=== PATIENT | male | born 1960 | race Caucasian/White ===

== ENCOUNTER 2017-10-05 23:59 | Emergency (ER) | payer MEDICAID ==
[~2017-10-05] VITALS: Ht 177.8 cm; Wt 102.1 kg
[2017-10-06 01:18] VITALS: BP 168/87
[2017-10-06] MEDS ORDERED: ACETAMINOPHEN/CODEINE#3 (300/30mg) TAB PO ONE (07:00)
== END 2017-10-06 07:26 | disposition home or self-care (01) ==
LOC: ER 10-06
DX: S43.005A Unspecified dislocation of left shoulder joint, initial encounter (principal); X58.XXXA Exposure to other specified factors, initial encounter; Y93.89 Activity, other specified; Y99.8 Other external cause status; Y92.89 Other specified places as the place of occurrence of the external cause
CPT/HCPCS: 23650; 73020; 73030

== ENCOUNTER 2017-12-29 02:04 | Emergency (ER) | payer MEDICAID, OTHER ==
[~2017-12-29] VITALS: Ht 177.8 cm; Wt 104.3 kg
[2017-12-29 02:10] VITALS: BP 135/105
[2017-12-29 02:37] LABS: Basophils # (auto) 0.1 uL; Basophils % (auto) 0.8 % (0.0-2.0); Eosinophils # (auto) 0.1 uL; Eosinophils % (auto) 0.4 % (0.0-7.0); Hematocrit 48.3 % (41.0-53.0); Hemoglobin 16.2 g/dL (13.5-17.5); Lymphocytes # (auto) 2.1 uL; Lymphocytes % (auto) 17.7 % (10.0-50.0); Mean Corpuscular Hemoglobin 29.1 pg (28.0-32.0); Mean Corpuscular Hgb Conc. 33.6 g/dL (32.0-36.0); Mean Corpuscular Volume 86.6 fL (80.0-100.0); Monocytes # (auto) 0.9 uL; Monocytes % (auto) 7.4 % (0.0-12.0); Neutrophils # (auto) 8.7 uL; Neutrophils % (auto) 73.7 % (37.0-80.0); Platelet Count (auto) 258 10^3/uL (140-450); Red Blood Cells 5.57 10^6/uL (4.5-5.90); Red Cell Distribution Width 14.2 % (11.8-14.3); White Blood Cell 11.7 10^3/uL (4.4-10.8)
[2017-12-29 02:50] LABS: Alanine Aminotransferase 68 U/L (16-61); Albumin 4.2 g/dL (3.4-5.0); Anion Gap 8 (5-15); Aspartate Aminotransferase 40 U/L (15-37); BUN/Creatinine Ratio 21.4; Blood Urea Nitrogen 21 mg/dL (7-18); Calcium 8.7 mg/dL (8.5-10.1); Carbon Dioxide 27 mmol/L (21-32); Chloride 105 mmol/L (98-107); GFR African American 101 mL/min; GFR Non-African American 84 mL/min; Glucose 87 mg/dL (74-106); Potassium 3.9 mmol/L (3.5-5.1); Sodium 140 mmol/L (136-145)
[2017-12-29 02:52] LABS: INR 1.15 (0.9-1.15); Prothrombin Time 12.6 sec (9.37-12.3)
[2017-12-29 02:55] LABS: Alkaline Phosphatase 107 U/L (45-117); Bilirubin, Total 1.5 mg/dL (0.2-1.0); Total Protein 8.5 g/dL (6.4-8.2)
[2017-12-29 03:33] LABS: Urine WBC None Seen /hpf (0 - 3)
[2017-12-29 03:50] LABS: Urine Bacteria NONE SEEN /hpf (None Seen); Urine Blood Negative /uL (Negative); Urine Mucus FEW (None Seen); Urine Specific Gravity 1.028 (1.001-1.035)
== END 2017-12-29 10:42 | disposition left against medical advice (07) ==
LOC: ER 02:06
DX: R06.02 Shortness of breath (principal); R42 Dizziness and giddiness; Z53.21 Procedure and treatment not carried out due to patient leaving prior to being seen by health care provider
CPT/HCPCS: 36415; 70450; 71046; 73130; 73600; 80053; 81001; 83880; 84484; 85025; 85610; 85730; 93005

== ENCOUNTER 2018-07-24 14:09 | Emergency (ER) | payer MEDICAID ==
[~2018-07-24] VITALS: Ht 177.8 cm; Wt 99.8 kg
[2018-07-24 14:41] VITALS: BP 166/113
[2018-07-24] MEDS ORDERED: SODIUM CHLORIDE 0.9% 1,000 ML IV ONE (14:50)
[2018-07-24] MEDS ORDERED: KETOROLAC TROMETH 30 MG/ML 1ML VIAL IV ONE (15:00)
[2018-07-24] MEDS ORDERED: cloNIDine HCL 0.1 MG TAB PO ONE (15:00)
[2018-07-24 15:39] LABS: Basophils # (auto) 0.1 uL; Basophils % (auto) 0.8 % (0.0-2.0); Eosinophils # (auto) 0.1 uL; Eosinophils % (auto) 1.2 % (0.0-7.0); Hematocrit 45.4 % (41.0-53.0); Hemoglobin 15.5 g/dL (13.5-17.5); Lymphocytes # (auto) 1.6 uL; Lymphocytes % (auto) 17.2 % (10.0-50.0); Mean Corpuscular Hemoglobin 29.7 pg (28.0-32.0); Mean Corpuscular Volume 87.4 fL (80.0-100.0); Monocytes # (auto) 0.9 uL; Monocytes % (auto) 9.1 % (0.0-12.0); Neutrophils # (auto) 6.9 uL; Neutrophils % (auto) 71.7 % (37.0-80.0); Platelet Count (auto) 257 10^3/uL (140-450); Red Cell Distribution Width 14.1 % (11.8-14.3); White Blood Cell 9.6 10^3/uL (4.4-10.8)
[2018-07-24 16:03] LABS: Albumin 4.1 g/dL (3.4-5.0); Anion Gap 4 (5-15); Blood Urea Nitrogen 22 mg/dL (7-18); Calcium 8.6 mg/dL (8.5-10.1); Carbon Dioxide 27 mmol/L (21-32); Chloride 108 mmol/L (98-107); Glucose 103 mg/dL (74-106); Magnesium 2.5 mg/dL (1.6-2.6); Sodium 139 mmol/L (136-145)
[2018-07-24 16:10] LABS: Alanine Aminotransferase 63 U/L (16-61); Alkaline Phosphatase 100 U/L (45-117); Aspartate Aminotransferase 41 U/L (15-37); BUN/Creatinine Ratio 17.7; Bilirubin, Total 1.1 mg/dL (0.2-1.0); GFR African American 77 mL/min; GFR Non-African American 64 mL/min; Total Protein 7.7 g/dL (6.4-8.2)
== END 2018-07-24 16:31 | disposition home or self-care (01) ==
LOC: ER 14:13
DX: I10 Essential (primary) hypertension (principal); R10.12 Left upper quadrant pain
CPT/HCPCS: 36415; 74176; 80053; 83735; 84484; 85025; 93005; 96361; 96374; 99284; J1885

== ENCOUNTER 2019-04-06 23:59 | Emergency (ER) | payer MEDICAID ==
[~2019-04-06] VITALS: Ht 177.8 cm; Wt 99.8 kg
[2019-04-07 01:28] VITALS: BP 129/84
[2019-04-07] MEDS ORDERED: cefTRIAXone SOD 1,000 MG VL IM ONE (01:30)
[2019-04-07] MEDS ORDERED: LIDOCAINE 1% HCL (LOCAL ANESTH.) INJ 20ML MDV IJ ONE (01:45)
== END 2019-04-07 02:22 | disposition home or self-care (01) ==
LOC: ER 04-07 00:02
DX: S61.011A Laceration without foreign body of right thumb without damage to nail, initial encounter (principal); W20.8XXA Other cause of strike by thrown, projected or falling object, initial encounter; Y93.89 Activity, other specified; Y92.89 Other specified places as the place of occurrence of the external cause; Y99.8 Other external cause status
CPT/HCPCS: 12001; 73120; 96372; 99283; J0696; J2001

== ENCOUNTER 2019-04-17 00:52 | Emergency (ER) | payer MEDICAID ==
[~2019-04-17] VITALS: Ht 177.8 cm; Wt 103.0 kg
[2019-04-17 01:02] VITALS: BP 183/90
[2019-04-17] MEDS ORDERED: KETOROLAC TROMETH 60MG/2ML VIAL IM ONE (05:30)
== END 2019-04-17 06:01 | disposition home or self-care (01) ==
LOC: ER 00:57
DX: M54.5 Low back pain (principal); X50.1XXA Overexertion from prolonged static or awkward postures, initial encounter; Y93.89 Activity, other specified; Y92.89 Other specified places as the place of occurrence of the external cause; Y99.8 Other external cause status
CPT/HCPCS: 72131; 96372; 99284; J1885

== ENCOUNTER 2020-06-11 13:06 | Emergency (ER) | payer MEDICAID ==
[~2020-06-11] VITALS: Ht 177.8 cm; Wt 105.2 kg
[2020-06-11 13:57] LABS: Basophils # (auto) 0.1 10 ^3/uL (0-0.2); Basophils % (auto) 0.9 % (0.0-2.0); Eosinophils # (auto) 0.3 10 ^3/uL (0-0.8); Eosinophils % (auto) 4.7 % (0.0-7.0); Hematocrit 43.1 % (41.0-53.0); Hemoglobin 14.8 g/dL (13.5-17.5); Lymphocytes # (auto) 1.7 10 ^3/uL (0.4-5.4); Lymphocytes % (auto) 24.7 % (10.0-50.0); Mean Corpuscular Hemoglobin 29.3 pg (28.0-32.0); Mean Corpuscular Hgb Conc. 34.3 g/dL (32.0-36.0); Mean Corpuscular Volume 85.4 fL (80.0-100.0); Monocytes # (auto) 0.6 10 ^3/uL (0-1.3); Monocytes % (auto) 8.8 % (0.0-12.0); Neutrophils # (auto) 4.2 10 ^3/uL (1.6-8.6); Neutrophils % (auto) 60.9 % (37.0-80.0); Nucleated Red Blood Cells % 0.1 %; Platelet Count (auto) 239 10^3/uL (140-450); Red Blood Cells 5.04 10^6/uL (4.5-5.90); Red Cell Distribution Width 14.8 % (11.8-14.3); White Blood Cell 6.9 10^3/uL (4.4-10.8)
[2020-06-11 14:19] LABS: Alanine Aminotransferase 71 U/L (16-61); Albumin 3.8 g/dL (3.4-5.0); Anion Gap 5 (5-15); Aspartate Aminotransferase 45 U/L (15-37); BUN/Creatinine Ratio 15.2; Blood Urea Nitrogen 16 mg/dL (7-18); Calcium 8.2 mg/dL (8.5-10.1); Carbon Dioxide 30 mmol/L (21-32); Chloride 106 mmol/L (98-107); GFR African American 93 mL/min; GFR Non-African American 77 mL/min; Glucose 86 mg/dL (74-106); Magnesium 2.3 mg/dL (1.6-2.6); Potassium 3.7 mmol/L (3.5-5.1); Sodium 141 mmol/L (136-145)
[2020-06-11 14:26] LABS: Alkaline Phosphatase 124 U/L (45-117); Bilirubin, Total 0.9 mg/dL (0.2-1.0)
[2020-06-11] MEDS ORDERED: IOHEXOL 350 MG/ML 100ML IJ ONE (14:29)
[2020-06-11 16:44] VITALS: BP 147/76
== END 2020-06-11 16:46 | disposition home or self-care (01) ==
LOC: ER 13:06
DX: F41.9 Anxiety disorder, unspecified (principal)
CPT/HCPCS: 36415; 71260; 74177; 80053; 83735; 83880; 84484; 85025; 85379; 99285; Q9967

== ENCOUNTER 2020-10-07 13:38 | Emergency (ER) | payer MEDICAID ==
[~2020-10-07] VITALS: Ht 177.8 cm; Wt 98.9 kg
[2020-10-07 14:55] VITALS: BP 142/97
[2020-10-07] MEDS ORDERED: LIDOCAINE 1% HCL (LOCAL ANESTH.) INJ 20ML MDV IJ ONE (15:15)
== END 2020-10-07 15:44 | disposition home or self-care (01) ==
LOC: ER 13:38
DX: S61.211A Laceration without foreign body of left index finger without damage to nail, initial encounter (principal); X58.XXXA Exposure to other specified factors, initial encounter; Y93.89 Activity, other specified; Y92.89 Other specified places as the place of occurrence of the external cause; Y99.8 Other external cause status
CPT/HCPCS: 12001; 99282; J2001

== ENCOUNTER 2021-08-02 06:33 | Emergency (ER) | payer MEDICAID ==
[~2021-08-02] VITALS: Ht 177.8 cm; Wt 99.8 kg
[2021-08-02 06:33] VITALS: BP 154/103
[2021-08-02 08:48] LABS: Basophils # (auto) 0 10 ^3/uL (0-0.2); Basophils % (auto) 0.5 % (0.0-2.0); Eosinophils # (auto) 0.1 10 ^3/uL (0-0.8); Eosinophils % (auto) 1.4 % (0.0-7.0); Hemoglobin 15.5 g/dL (13.5-17.5); Lymphocytes # (auto) 1.6 10 ^3/uL (0.4-5.4); Lymphocytes % (auto) 18.2 % (10.0-50.0); Mean Corpuscular Hemoglobin 27.8 pg (28.0-32.0); Mean Corpuscular Hgb Conc. 32.2 g/dL (32.0-36.0); Mean Corpuscular Volume 86.3 fL (80.0-100.0); Monocytes # (auto) 0.6 10 ^3/uL (0-1.3); Monocytes % (auto) 7.3 % (0.0-12.0); Neutrophils # (auto) 6.2 10 ^3/uL (1.6-8.6); Neutrophils % (auto) 72.6 % (37.0-80.0); Nucleated Red Blood Cells % 0.1 %; Red Blood Cells 5.57 10^6/uL (4.5-5.90); Red Cell Distribution Width 14.4 % (11.8-14.3); White Blood Cell 8.6 10^3/uL (4.4-10.8)
[2021-08-02 10:07] LABS: Albumin 3.5 g/dL (3.4-5.0); Calcium 8.8 mg/dL (8.5-10.1)
[2021-08-02 10:12] LABS: BUN/Creatinine Ratio 23.5; Bilirubin, Total 1.1 mg/dL (0.2-1.0)
== END 2021-08-02 09:57 | disposition left against medical advice (07) ==
LOC: ER 06:33
DX: R06.02 Shortness of breath (principal); Z53.21 Procedure and treatment not carried out due to patient leaving prior to being seen by health care provider
CPT/HCPCS: 36415; 71045; 80053; 84484; 85025; 93005

== ENCOUNTER 2021-10-21 19:29 | Emergency (ER) | payer MEDICAID ==
[~2021-10-21] VITALS: Ht 177.8 cm; Wt 99.8 kg
[2021-10-21 21:37] LABS: Albumin 3.9 g/dL (3.4-5.0); BUN/Creatinine Ratio 21.3; Calcium 8.7 mg/dL (8.5-10.1); Potassium 4.6 mmol/L (3.5-5.1)
[2021-10-21 21:40] LABS: Total Protein 7.6 g/dL (6.4-8.2)
[2021-10-21 21:43] LABS: Basophils # (auto) 0.1 10 ^3/uL (0-0.2); Basophils % (auto) 0.7 % (0.0-2.0); Eosinophils # (auto) 0.1 10 ^3/uL (0-0.8); Eosinophils % (auto) 1.6 % (0.0-7.0); Hematocrit 43.9 % (41.0-53.0); Hemoglobin 14.9 g/dL (13.5-17.5); Lymphocytes # (auto) 1.6 10 ^3/uL (0.4-5.4); Lymphocytes % (auto) 18.1 % (10.0-50.0); Mean Corpuscular Hemoglobin 28.9 pg (28.0-32.0); Mean Corpuscular Hgb Conc. 33.9 g/dL (32.0-36.0); Mean Corpuscular Volume 85.2 fL (80.0-100.0); Monocytes # (auto) 0.7 10 ^3/uL (0-1.3); Monocytes % (auto) 8.4 % (0.0-12.0); Neutrophils # (auto) 6.1 10 ^3/uL (1.6-8.6); Neutrophils % (auto) 71.2 % (37.0-80.0); Nucleated Red Blood Cells % 0.1 %; Red Blood Cells 5.15 10^6/uL (4.5-5.90); Red Cell Distribution Width 14.8 % (11.8-14.3); White Blood Cell 8.6 10^3/uL (4.4-10.8)
[2021-10-22 01:10] LABS: Alcohol, Urine < 3.0 mg/dL (0-10); Amphetamine Screen, Urine POSITIVE (NEGATIVE); Barbiturate Scree,Urine NEGATIVE (NEGATIVE); Benzodiazephine Screen, Urine NEGATIVE (NEGATIVE); Cannabinoid Screen, Urine NEGATIVE (NEGATIVE); Cocaine Screen, Urine NEGATIVE (NEGATIVE); Phencyclidine Screen, Urine NEGATIVE (NEGATIVE)
[2021-10-22 01:12] LABS: Urine Bacteria NONE SEEN /hpf (None Seen); Urine Blood Negative /uL (Negative); Urine Mucus FEW (None Seen); Urine Specific Gravity 1.028 (1.001-1.035); Urine WBC 1 /hpf (0 - 3)
[2021-10-22 01:18] LABS: Opiate Scree,Urine NEGATIVE (NEGATIVE)
[2021-10-22 02:20] VITALS: BP 141/94
== END 2021-10-22 02:26 | disposition home or self-care (01) ==
LOC: ER 19:31
DX: K52.9 Noninfective gastroenteritis and colitis, unspecified (principal)
CPT/HCPCS: 36415; 74176; 80053; 80307; 81001; 83690; 85025

== ENCOUNTER 2021-12-02 08:45 | Emergency (ER) | payer MEDICAID ==
[~2021-12-02] VITALS: Ht 177.8 cm; Wt 99.8 kg
[2021-12-02 10:00] VITALS: BP 159/107
[2021-12-02] MEDS ORDERED: TETRACAINE HCL 0.5% OPTH(EYE) SOLN 4ML RIGHTEYE ONE (10:30)
[2021-12-02] MEDS ORDERED: FLUORESCEIN SOD OPTH TEST STRIP RIGHTEYE ONE (10:30)
[2021-12-02] MEDS ORDERED: POLYSOL15 OP (11:02)
== END 2021-12-02 12:31 | disposition home or self-care (01) ==
LOC: ER 08:45
DX: H10.31 Unspecified acute conjunctivitis, right eye (principal); B96.89 Other specified bacterial agents as the cause of diseases classified elsewhere; Z79.899 Other long term (current) drug therapy

== ENCOUNTER 2023-02-03 16:31 | Emergency (ER) | payer MEDICAID ==
[~2023-02-03 16:31] MED LIST: GENT0.3S10 OP; POLYSOL28 OP
== END 2023-02-03 16:50 | disposition left against medical advice (07) ==
LOC: ER 16:31
DX: K08.89 Other specified disorders of teeth and supporting structures (principal); Z53.21 Procedure and treatment not carried out due to patient leaving prior to being seen by health care provider

== ENCOUNTER 2024-01-18 14:58 | Emergency (ER) | payer MEDICAID ==
[~2024-01-18] VITALS: Ht 177.8 cm; Wt 100.0 kg
[2024-01-18 18:35] VITALS: BP 136/95; PULSE 95; RESP 16; TEMP 98.1; O2SAT 95
[2024-01-18] MEDS ORDERED: ACE3T PO (18:37)
[2024-01-18] MEDS ORDERED: CYCL-837 PO (18:37)
[2024-01-18] MEDS: KETOROLAC TROMETH 60MG/2ML VIAL IM ONE (18:43)
== END 2024-01-18 18:48 | disposition home or self-care (01) ==
LOC: ER 14:58
DX: S39.012A Strain of muscle, fascia and tendon of lower back, initial encounter (principal); V43.52XA Car driver injured in collision with other type car in traffic accident, initial encounter; Y93.89 Activity, other specified; Y92.488 Other paved roadways as the place of occurrence of the external cause; Y99.8 Other external cause status
CPT/HCPCS: 96372; 99283; J1885

== ENCOUNTER 2024-11-04 12:54 | Inpatient (IN) | payer MEDICAID ==
[2024-11-04] VITALS (38 sets, daily range): BP systolic 120–149; BP diastolic 81–105; PULSE 68–92; RESP 10–26; TEMP 97.5–97.7; O2SAT 94–100
[~2024-11-04] VITALS: Ht 177.8 cm; Wt 97.5 kg
[~2024-11-04 12:54] MED LIST changes: +ACE3T PO; +CYCL-837 PO
--- NOTE | 2024-11-04 13:03 | ED.PDOC ---
HPI Comments HPI: Poor Historian. 64-year-old male presents to emergency department for evaluation of left-sided chest pain constant nonradiating. Onset of symptoms yesterday. No alleviating or precipitating factors. Patient also has some nonspecific associated generalized abdominal pain with nausea but no vomiting. Denies any other acute symptoms. Past Medical History: Denies Past Surgical History: Denies Denies any use of drugs or alcohol or tobacco. REVIEW OF SYSTEMS: CONSTITUTIONAL: Denies acute: fever, diaphoresis, chills, HEAD: Denies acute: headache, photophobia Eyes: Denies acute: Double vision, vision loss, eye pain, eye discharge. EARS: Denies acute: tinnitus, hearing loss, ear discharge, ear pain, THROAT: Denies acute: sore throat, swelling, difficulty swallowing , pain with swallowing, change in voice. NECK: Denies acute: neck pain, neck swelling, stiff neck. HEART: Denies acute : palpitations, LUNGS: Denies acute: SOB, wheezing, cough, hemoptysis ABDOMEN: Denies acute: Vomiting, diarrhea, melena , hematemesis, hematochezia SKIN: Denies acute: rash, redness, lesions, itchiness. EXTREMITIES: Denies acute: calf pain, numbness, tingling, weakness, denies pain in extremity. Denies acute: Low back pain. Neuro: Denies acute: focal neurological deficit, motor or sensory focal neurological deficit, tremors, seizure like activity, confusion, dizziness, change in mental status, loss of bowel or bladder function, cauda equina like symptoms. : Denies acute: dysuria, hematuria, flank pain, increase in urinary frequency. PSYCH: Denies acute: hallucination, suicidal ideation, homicidal ideation. PHYSICAL EXAM: General: no acute distress, awake and alert. Head: normocephalic, atraumatic. Neck: supple, trachea is midline, no swelling. Throat: Normal phonation. Eyes:, no erythema, no purulent discharge, no proptosis, no icterus. Heart: regular rate, regular rhythm, no significant murmur appreciated. Lungs: no apparent respiratory distress, Able to speak in full sentences. No wheezing, no rhonchi, no crackles. No stridors Clear to auscultation bilaterally. Abdomen: Generalized tender to palpation, non distended, soft, no guarding, no rebound, + bowel sounds. Neuro: Awake, Alert, oriented to name, self, situation, follows commands GCS=15. Speech is normal. Skin: no petechia, no purpura, no cyanosis, slightly-pale, not jaundice. Lower extremities: --no - Pitting edema no deformity, no focal swelling, no calf TTP. Makes eye contact. moves all four extremities. Face: no apparent facial droop. ED COURSE: Time Seen by MD: 12:56 Primary Care Provider: JAGUAR Reviewed Notes: Nurses Notes, Medications, Allergies Allergies: Coded Allergies: NO KNOWN ALLERGIES (Unverified , 01/21/16) Home Meds Active Scripts Acetaminophen W/ Codeine (Tylenol W/Cod #3) 1 Tab Tb, 1 TAB PO Q6HPRN, #10 TAB 0 Refills Prov:CIRILO LACEY 01/18/24 Cyclobenzaprine Hcl (Cyclobenzaprine Hcl) 5 Mg Tab, 1 TAB PO QHSP, #14 TAB 0 Refills Prov:CIRILO LACEY 01/18/24 Gentamicin Sulfate (Gentamicin Sulfate) 0.3 % Shikha, 1 DROP OP Q4HR for 5 Days, #5 DROP Prov:LELA ALCARAZ MD 12/11/22 Polymyxin B-Trimethoprim (Trimethoprim Sulfate/Poly) Polymyxn Shikha, 1 DROP OP Q3HR for 7 Days, #1 BOTTLE 0 Refills Prov:CIRILO LACEY 12/02/21 Information Source: Patient Past Medical History PAST MEDICAL HISTORY: Denies Surgical History: Denies all surgeries Family History Family History: Unknown Social History Smoker: Non-Smoker Alcohol: Rarely Drugs: Denies Drug Use Lives In: Home Was a procedure done? Was a procedure done?: No CP Differential Dx Differential Diagnosis: N/A Differential Diagnosis: Other (Ddx include but not limitied to gastritis, musculoskeletal pain, radiculopathy, atypical chest pain, dissection, aneurysm, ACS, unstable angina, hiatal hernia, GERD, anxiety, costochondritis, PE, pneumothroax, neoplasm, cardiac ischemia, drug abuse, anemia.) X-Ray, Labs, Meds, VS Vital Signs Date Time Temp Pulse Resp B/P (MAP) Pulse Ox O2 Delivery O2 Flow Rate FiO2 11/04/24 13:34 94 Nasal Cannula* 4 36 11/04/24 13:31 85 9 173/129 (144) 96 11/04/24 13:27 88 10 94 Room Air* 4 N/A Nasal Cannula* 11/04/24 13:14 89 11 182/130 11/04/24 13:11 98.1 110 11 182/130 (147) 88 98.1 11/04/24 13:11 98.1 89 19 182/130 (147) 98 98.1 11/04/24 13:03 81 Lab Test 11/04/24 14:24 11/04/24 13:03 Range/Units Blood Gas Specimen Type Arterial Blood Gas Sample Site Arterial line Blood Gas Patient Temperature 37.0 Arterial Blood Date Drawn [id number] Arterial Blood pH 7.332 L 7.350-7.450 Arterial Blood Partial Pressure CO2 39.2 35.0-48.0 mmHg Arterial Blood Partial Pressure O2 62.6 L 83.0-108.0 mmHg Arterial Blood HCO3 20.3 L 21.0-28.0 mmol/L Arterial Blood Oxygen Saturation 90.6 L 94.0-98.0 % Arterial Blood Base Excess -5.1 L -2.0-3.0 mmol/L Arterial Blood Oxyhemoglobin 89.2 L 94.0-98.0 % Arterial Blood Carboxyhemoglobin 1.2 0.5-1.5 % Arterial Blood Methemoglobin 0.3 0.0-1.5 % [place] Test N/a Blood Gas Total Hemoglobin 14.50 13.5-17.5 g/dL Blood Gas Liter Flow 3.00 Blood Gas Modality Nasal cannula Blood Gas Spontaneous Rate 20 FiO2 % 32.0 White Blood Count 8.3 4.4-10.8 10^3/uL Red Blood Count 5.35 4.5-5.90 10^6/uL Hemoglobin 16.1 13.5-17.5 g/dL Hematocrit 47.2 41.0-53.0 % Mean Corpuscular Volume 88.1 80.0-100.0 fL Mean Corpuscular Hemoglobin 30.0 28.0-32.0 pg Mean Corpuscular Hemoglobin Concent 34.1 32.0-36.0 g/dL Red Cell Distribution Width 13.9 11.8-14.3 % Platelet Count 290 140-450 10^3/uL Mean Platelet Volume 8.1 6.9-10.8 fL Neutrophils (%) (Auto) 71.7 37.0-80.0 % Lymphocytes (%) (Auto) 17.4 10.0-50.0 % Monocytes (%) (Auto) 9.2 0.0-12.0 % Eosinophils (%) (Auto) 1.1 0.0-7.0 % Basophils (%) (Auto) 0.6 0.0-2.0 % Neutrophils # (Auto) 6.0 1.6-8.6 10 ^3/uL Lymphocytes # (Auto) 1.4 0.4-5.4 10 ^3/uL Monocytes # (Auto) 0.8 0-1.3 10 ^3/uL Eosinophils # (Auto) 0.1 0-0.8 10 ^3/uL Basophils # (Auto) 0.1 0-0.2 10 ^3/uL Nucleated Red Blood Cells 0.1 % Prothrombin Time 11.7 9.3-11.8 sec Prothrombin Time INR 1.12 0.9-1.15 Activated Partial Thromboplast Time 29.6 24.5-34.5 SEC Sodium Level 144 136-145 mmol/L Potassium Level 4.1 3.5-5.1 mmol/L Chloride Level 108 H 98-107 mmol/L Carbon Dioxide Level 24 20-31 mmol/L Anion Gap 12 5-15 Blood Urea Nitrogen 15 9-23 mg/dL Creatinine 0.89 0.700-1.30 mg/dL Glomerular Filtration Rate Calc 96 >90 mL/min BUN/Creatinine Ratio 16.9 10.0-20.0 Serum Glucose 116 H 74-106 mg/dL Hemoglobin A1c 5.3 <5.7 % A1C Lactic Acid Level 1.3 0.4-2.0 mmol/L Calcium Level 9.6 8.7-10.4 mg/dL Magnesium Level 2.2 1.6-2.6 mg/dL Total Bilirubin 1.6 H 0.2-1.0 mg/dL Aspartate Amino Transferase (AST) 50 H 13-40 U/L Alanine Aminotransferase (ALT) 32 7-40 U/L Alkaline Phosphatase 110 46-116 U/L Troponin I High Sensitivity 1902 *H </=54 ng/L B-Type Natriuretic Peptide 28.78 0-100 pg/mL Total Protein 7.0 5.7-8.2 g/dL Albumin 4.5 3.2-4.8 g/dL Triglycerides Level 91 < 150 mg/dL Cholesterol Level 170 < 200 mg/dL LDL Cholesterol 122 H < 100 mg/dL HDL Cholesterol 39 L 40-59 mg/dL Lipase 65 H 12-53 U/L Thyroid Stimulating Hormone (TSH) 2.26 0.55-4.78 uIU/mL Hepatitis B Surface Antigen Pending Hepatitis C Antibody Pending Current Medications Medications (Trade) Dose Ordered Sig/Lars Route Start Time Stop Time Status Last Admin Aspirin 325 mg ONCE ONCE PO 11/04/24 13:15 11/04/24 13:16 DC 11/04/24 13:25 Morphine Sulfate 4 mg ONCE ONCE IV 11/04/24 13:15 11/04/24 13:16 DC 11/04/24 13:14 Ondansetron HCl (Zofran) 4 mg ONCE ONCE IV 11/04/24 13:15 11/04/24 13:16 DC 11/04/24 13:14 Heparin Sodium (Porcine) 4,000 units ONCE ONCE IV 11/04/24 13:15 11/04/24 13:16 DC 11/04/24 13:14 Pantoprazole Sodium (Protonix) 40 mg ONCE ONCE IV 11/04/24 13:15 11/04/24 13:23 DC 11/04/24 13:25 PATIENT: LUH RIOSACCT: [id number]: [id number] : 1960 LOC: ER ROOM / BED: / AGE / SEX: 64 / M ADM STATUS: REG ER SERVICE 1259 ORDERING PHYSICIAN: BRADLEY DUPONT DO PROCEDURE(s): ABPL - CT AB PEL WO CON-NO ORAL OR IV REASON: abd pain nausea ORDER NUMBER(s): [id number], ACCESSION NUMBER(s): [id number] CT CT AB PEL WO CON-NO ORAL OR IV INDICATION: abd pain nausea EXAM DATE: 11/04/2024 01:23 PM COMPARISON: CT CT AB PEL WO CON-NO ORAL OR IV on DOS: 12/11/22, CT ABD PELVIS WO CONTRAST on DOS: 10/21/21 RADIATION DOSE: CTDIvol: 24.56 mGy, DLP: 1359.85 mGy*cm PROCEDURE: Helical CT images were obtained of the abdomen and pelvis without IV contrast Sagittal and coronal reconstructions are provided. ORAL CONTRAST: None. ADDITIONAL IMAGES / REFORMATS: None All CT scans at this medical facility are p erformed using dose modulation techniques as appropriate to a performed exam including the following: Automated exposure control was utilized; adjustment of the MA and/or KV according to patient size; and use of iterative reconstruction technique. FINDINGS: LUNG BASE: Bibasilar atelectasis. LIVER: Normal. GALLBLADDER AND BILIARY TREE: No calcified gallstones. Normal caliber wall. No intra- or extrahepatic biliary ductal dilation. PANCREAS: Normal. SPLEEN: Normal. BOWEL: Normal. Normal appendix. ADRENALS: Normal. KIDNEYS AND URETER: Normal. BLADDER: Normal. REPRODUCTIVE ORGANS: Normal. LYMPH NODES:No lymphadenopathy. PERITONEUM: Mild mid abdominal mesenteric fat stranding, nonspecific. VESSELS: Scattered atherosclerotic calcifications are noted. RETROPERITONEUM: Normal. ABDOMINAL WALL: Bilateral fat containing inguinal hernias. BONES: Scattered osseous degenerative changes are noted. IMPRESSION: No acute intraabdominal abnormality. ATED BY: ENRIQUE POOL MD DICTATED DATE/TIME: 11/04/241408 SIGNED BY: ENRIQUE POOL MD SIGNED DATE/TIME: 11/04/241408 PATIENT: LUH RIOS JACCT: [id number] UNIT: [id number] : 1960 LOC: ER ROOM / BED: / AGE / SEX: 64 / M ADM STATUS: REG ER SERVICE 1259 ORDERING PHYSICIAN: BRADLEY DUPONT DO PROCEDURE(s): CXRP - CHEST PORTABLE REASON: cp ORDER NUMBER(s): [id number], ACCESSION NUMBER(s): [id number] CHEST RADIOGRAPH Indication: cp Technique: Single frontal view of the chest was obtained Comparison: CHEST PORTABLE on DOS: 08/02/21 FINDINGS: Lines and Tubes: None Lungs: Or inspiratory effort with elevation of both diaphragms Pleura: No effusion. No pneumothorax. Cardiomediastinal contours: Unremarkable Bones: No acute osseous abnormality. IMPRESSION: 1. Or inspiratory effort with elevation of both diaphragms HS:Y ATED BY: KATHLEEN PIZARRO Jr., DO DICTATED DATE/TIME: 11/04/241343 SIGNED BY: KATHLEEN PIZARRO Jr., SIGNED DATE/TIME: 11/04/241343 Time of 1ST Reevaluation: 13:07 (EKG shows STEMI. Cardiac nursery laborer was activated cardiology was consulted. Dr. Brody said he is on his way to evaluate the patient. No further recommendations.) Reevaluation 1ST: Unchanged Time of 2ND Reevaluation: 13:37 (As of this minute, nursery laborer is still not here.) Patient Education/Counseling: Diagnosis, Treatment Family Education/Counseling: Other Comments Patient was evaluated immediately upon arrival. EKG shows acute STEMI. Cardiac nursery laborer was activated and Cardiology were consulted immediately. Patient complained of abdominal pain and nausea and was tender diffusely in his abdomen. CT scan of the abdomen and pelvis was ordered to rule out any dissection. Patient appeared diaphoretic and pale. Cardiology team came and evaluated the patient at bedside. Please see their consultation notes and the medications they ordered. I was informed that there was a delay in nursery laborer arriving to picking belt operator the patient. Given the patient's abdominal pain I needed to rule out dissection. Patient's vital signs were heart rate was normal and he was hypertensive. Patient has already received morphine and aspirin. I gave a verbal for labetalol 5 mg IV. lead technologist in cytogenetics came and approached me to see if the pt will go to CT scan first or go directly to the nursery laborer. I said if the nursery laborer team is not here yet then let's take the patient around the corner to obtain a CT scan of abdomen and pelvis. The charge nurse stated that the patient is unstable to go to the CT scan because of elevated blood pressure. She also voiced that moving the patient from the bed to the CT table aggravated the patient. I clarified that if the nursery laborer team is not here yet and we have time while waiting to obtain a CT scan of abdomen and pelvis then let's get it done quickly. Again patient had chest pain with abdominal pain with nausea and diaphoretic and we must rule out dissection. Did not give any contrast study given the patient's anticipated angiogram and not knowing his renal function yet. Departure 1 Departure Time of Disposition: 13:08 Impression: Primary Impression: STEMI (ST elevation myocardial infarction) Additional Impression: Acute abdominal pain Disposition: 09 ADMITTED INPATIENT Admit to: Tele Condition: Critical Discharged With: Self Critical Care Note Critical Care Time?: Yes (45 min-critical care time only) Heart Score Heart Score: Heart Score Response (Comments) Value History Highly Suspicious [address]-Deviation 2 Age 45-64 1 Risk Factors No known risk factors 0 Troponin >3 x's Normal limit 2 Total 7 I personally scribed for BRADLEY DUPONT DO ([email or web address]) on 11/04/24 at 16:39. Electronically submitted by Mando Millard ([email or web address]). BRADLEY DUPONT DO Nov 04, 2024 13:03
--- NOTE | 2024-11-04 13:05 | ECG ---
[facility] Test Date: 2024-11-04 Test Time: 13:03:57 Pat Name: LUH RIOS Department: ER Room: [address] [place] [address] Gender: M Commutator Repairer: ARPIT : 1960 Requested By: BRADLEY DUPONT Order Number: [id number] Reading MD: Ted Brody Measurements Intervals [place] Rate: 81 P: 53 MN: 152 QRS: 11 QRSD: 100 T: 99 QT: 396 QTc: 460 Interpretive Statements Sinus rhythm Atrial premature complex Inferior infarct, acute (RCA) Lateral leads are also involved Probable RV involvement, suggest recording right precordial leads Electronically Signed On 11-04-2024 17:47:54 PDT by Ted Brody Please click the below link to view image of tracing.
[2024-11-04] MEDS: HEPARIN SODIUM (PORCINE) 5000 UNITS/ML 1ML VIAL IV ONE ×2 (13:14→13:32)
[2024-11-04] MEDS: ONDANSETRON HCL 4 MG/2 ML VIAL IV ONE ×2 (13:14→13:34)
[2024-11-04] MEDS: MORPHINE SULFATE 4 MG/ML SYR/VIAL IV ONE ×2 (13:14→13:34)
[2024-11-04] MEDS: LIDOCAINE 2%HCL (LOCAL ANESTH.) INJ 20ML MDV ONE (13:17)
[2024-11-04] MEDS: SODIUM CHL 0.9% 50 ML ONE ×2 (13:17→14:58)
[2024-11-04] MEDS: ANGIOMAX 250 MG VIAL IV ONE ×2 (13:17→14:58)
[2024-11-04] MEDS: VERAPAMIL 2.5MG/ML INJ 2ML VIAL IV ONE (13:17)
--- NOTE | 2024-11-04 13:17 | DVHINCON2 ---
Date Seen: Nov 04, 2024 Referring Physician MD [place] Reason for Consultation STEMI History of Present Illness This is a 64-year-old man who presented to the emergency room with a chief complaint of chest pain since yesterday afternoon. Describes his chest pain as left-sided, radiating to his left upper extremity, intermittent, pressure-like, unprovoked, and associated with cold sweats. States he self-administered Ibuprofen 800 mg p.o. x 2 one hour prior to arrival. Given progression of symptoms he decided to attend the nearest emergency room. He underwent a 12 lead electrocardiogram revealing a sinus rhythm with an inferior wall ST- elevation myocardial infarction from which a code STEMI was activated. Blood work is pending at this time. Denies familial history for cardiovascular diseas e. Denies history of tobacco use. Only medical history reported includes sciatica. Past Medical History Past medical history reviewed. No other significant than mentioned above. Past Surgical History Denies any past surgical history. Family History Denies family history for cardiovascular disease. Social History Denies the use of illicit drugs, alcohol, or tobacco use. Allergies: Coded Allergies: NO KNOWN ALLERGIES (Unverified , 01/21/16) Home Meds Active Scripts Acetaminophen W/ Codeine (Tylenol W/Cod #3) 1 Tab Tb, 1 TAB PO Q6HPRN, #10 TAB 0 Refills Prov:CIRILO LACEY 01/18/24 Cyclobenzaprine Hcl (Cyclobenzaprine Hcl) 5 Mg Tab, 1 TAB PO QHSP, #14 TAB 0 Refills Prov:CIRILO LACEY 01/18/24 Gentamicin Sulfate (Gentamicin Sulfate) 0.3 % Shikha, 1 DROP OP Q4HR for 5 Days, #5 DROP Prov:LELA ALCARAZ MD 12/11/22 Polymyxin B-Trimethoprim (Trimethoprim Sulfate/Poly) Polymyxn Shikha, 1 DROP OP Q3HR for 7 Days, #1 BOTTLE 0 Refills Prov:CIRILO LACEY 12/02/21 Home Meds Denies any prescribed home medications. Review of Systems Constitutional: No symptom reported Ears, Nose, & Throat: No symptom reported Eyes: No symptom reported Neurological: No symptoms reported Pulmonary/Respiratory: No symptom reported Cardiovascular: Chest pain Gastrointestinal: No symptom reported Genitourinary: No symptom reported Musculoskeletal: No symptom reported Skin: No symptom reported Psychiatric: No symptom reported Endocrine: No symptom reported Hemotologic/Lymphatic: No symptom reported Vital Signs Vital Signs Date Time Temp Pulse Resp B/P (MAP) Pulse Ox O2 Delivery O2 Flow Rate FiO2 11/04/24 13:11 98.1 89 19 182/130 (147) 98 98.1 Physical Exam General Appearance: Cooperative. Well developed. Well nourished. In no acute distress Head Exam: Normal inspection Neck Exam: Normal inspection. Non-tender. Normal alignment Pulmonary/Respiratory: Chest non-tender. Clear bilateral breath sounds Cardiovascular/Chest: Regular rate and rhythm. S1, S2. Inferior wall ST- elevation. No murmurs. No JVD. Peripheral Pulses: 2+ Radial (R). 2+ Radial (L). 2+ Pedal (R). 2+ Pedal (L) Abdominal Exam: Normal bowel sounds. Soft. Nontender. No hepatospenomegaly. No masses Ankle Exam: Negative ankle edema Lower extremities: Negative lower extremity edema Neuro/Mental Status: A&O x4. Coherent Thoughts/Psych: Normal thought pattern. Appropriate mood and affect. Good judgement and insight Appearance: In no acute distress Skin Exam: Normal inspection. Pale color. Warm. Dry Assessment Acute inferior wall ST-elevation myocardial infarction Hypertensive emergency Rule out structural heart disease Hx of amphetamines per records in 2021 Obesity Plan/Recommendation (Dr. Brody) Scheduled for emergent coronary angiogram with left cardiac catheterization. All risks and benefits of the procedure were discussed with the patient who agrees to proceed with intervention. All questions answered. Next of kin, iSlvio Chaidez, notified of POC at [phone]. Postprocedure obtain a transthoracic echocardiogram to evaluate cardiac function. Obtain UDS given recent history of methamphetamine use. Continue ACS protocol. Blood work pending at this time. Rest of plan per clinical course. Thank you for allowing us to participate in this patient's care. Please call if you have any questions or concerns. Critical care time: 40 min. This medical document was created using an electronic medical record system with voice recognition software and computerized dictation system. Although this document has been carefully reviewed, there might still be some phonetic and typographical errors. Occasional wrong-word or ``sound-alike substitutions may have occurred due to the inherent limitations of voice recognition software. These areas are purely typographical due to imperfections of the software programs and do not reflect any compromise in the patient's medical care. Please read the chart carefully a nd recognize, using context, where these substitutions have occurred. Plan discussed with: Patient, Other NYHA Physical activity limitations: NA Date of Service: Nov 04, 2024 Billing Provider: ANGELINA FOSS Cardiology Common Codes: 86633-GPSGTMNT CARE 30-74 MIN ANGELINA FOSS Nov 04, 2024 13:17
[2024-11-04] MEDS: HEPARIN SODIUM (PORCINE) 5000 UNITS/ML 1ML VIAL ONE (13:19)
[2024-11-04] MEDS: MORPHINE SULFATE 4 MG/ML SYR/VIAL ONE (13:19)
[2024-11-04] MEDS: ONDANSETRON HCL 4 MG/2 ML VIAL ONE (13:19)
[2024-11-04] MEDS: PANTOPRAZOLE 40 MG/10 ML VIAL INJ IV ONE ×2 (13:23→13:25)
[2024-11-04] MEDS: ASPirin 325 MG TAB PO ONE (13:25)
[2024-11-04 13:34] LABS: Basophils # (auto) 0.1 10 ^3/uL (0-0.2); Basophils % (auto) 0.6 % (0.0-2.0); Eosinophils # (auto) 0.1 10 ^3/uL (0-0.8); Eosinophils % (auto) 1.1 % (0.0-7.0); Hematocrit 47.2 % (41.0-53.0); Hemoglobin 16.1 g/dL (13.5-17.5); Lymphocytes # (auto) 1.4 10 ^3/uL (0.4-5.4); Lymphocytes % (auto) 17.4 % (10.0-50.0); Mean Corpuscular Hgb Conc. 34.1 g/dL (32.0-36.0); Mean Corpuscular Volume 88.1 fL (80.0-100.0); Monocytes # (auto) 0.8 10 ^3/uL (0-1.3); Monocytes % (auto) 9.2 % (0.0-12.0); Neutrophils % (auto) 71.7 % (37.0-80.0); Nucleated Red Blood Cells % 0.1 %; Platelet Count (auto) 290 10^3/uL (140-450); Red Blood Cells 5.35 10^6/uL (4.5-5.90); Red Cell Distribution Width 13.9 % (11.8-14.3); White Blood Cell 8.3 10^3/uL (4.4-10.8)
--- NOTE | 2024-11-04 13:46 | DVH ---
CHEST RADIOGRAPH Indication: cp Technique: Single frontal view of the chest was obtained Comparison: CHEST PORTABLE on DOS: 08/02/21 FINDINGS: Lines and Tubes: None Lungs: Or inspiratory effort with elevation of both diaphragms Pleura: No effusion. No pneumothorax. Cardiomediastinal contours: Unremarkable Bones: No acute osseous abnormality. IMPRESSION: 1. Or inspiratory effort with elevation of both diaphragms HS:Y
[2024-11-04] MEDS: IODIXANOL 320MG/ML 100ML BTL IV ONE (13:47)
[2024-11-04 13:50] LABS: INR 1.12 (0.9-1.15); Partial Thromboplastin Time 29.6 SEC (24.5-34.5); Prothrombin Time 11.7 sec (9.3-11.8)
[2024-11-04 13:51] LABS: Alanine Aminotransferase 32 U/L (7-40); Albumin 4.5 g/dL (3.2-4.8); Alkaline Phosphatase 110 U/L (46-116); Anion Gap 12 (5-15); BUN/Creatinine Ratio 16.9 (10.0-20.0); Blood Urea Nitrogen 15 mg/dL (9-23); Magnesium 2.2 mg/dL (1.6-2.6); Potassium 4.1 mmol/L (3.5-5.1); Sodium 144 mmol/L (136-145)
[2024-11-04 13:57] LABS: Aspartate Aminotransferase 50 U/L (13-40); Bilirubin, Total 1.6 mg/dL (0.2-1.0); Calcium 9.6 mg/dL (8.7-10.4); Carbon Dioxide 24 mmol/L (20-31); Chloride 108 mmol/L (98-107); Glucose 116 mg/dL (74-106); Lipase 65 U/L (12-53)
[2024-11-04] MEDS: fentaNYL CITRATE 100 MCG/2 ML VL ONE (13:58)
[2024-11-04] MEDS: MIDAZOLAM HCL 2MG/2ML 2ml VIAL (1mg/ml) ONE (13:58)
[2024-11-04 14:02] LABS: Triglycerides 91 mg/dL (< 150)
[2024-11-04 14:05] LABS: Cholesterol 170 mg/dL (< 200)
[2024-11-04] MEDS: ATROPINE SULF 1 MG/10ml SYR ONE (14:11)
--- NOTE | 2024-11-04 14:11 | DVH ---
CT CT AB PEL WO CON-NO ORAL OR IV INDICATION: abd pain nausea EXAM DATE: 11/04/2024 01:23 PM COMPARISON: CT CT AB PEL WO CON-NO ORAL OR IV on DOS: 12/11/22, CT ABD PELVIS WO CONTRAST on DOS: RADIATION DOSE: CTDIvol: 24.56 mGy, DLP: 1359.85 mGy*cm PROCEDURE: Helical CT images were obtained of the abdomen and pelvis without IV contrast Sagittal and coronal reconstructions are provided. ORAL CONTRAST: None. ADDITIONAL IMAGES / REFORMATS: None All C T scans at this medical facility are performed using dose modulation techniques as appropriate to a p erformed exam including the following: Automated exposure control was utilized; adjustment of the MA and/or KV according to patient size; and use of iterative reconstruction technique. FINDINGS: LUNG BASE: Bibasilar atelectasis. LIVER: Normal. GALLBLADDER AND BILIARY TREE: No calcified gallstones. Normal caliber wall. No intra- or extrahepatic biliary ductal dilation. PANCREAS: Normal. SPLEEN: Normal. BOWEL: Normal. Normal appendix. ADRENALS: Normal. KIDNEYS AND URETER: Normal. BLADDER: Normal. REPRODUCTIVE ORGANS: Normal. LYMPH NODES:No lymphadenopathy. PERITONEUM: Mild mid abdominal mesenteric fat stranding, nonspecific. VESSELS: Scattered atherosclerotic calcifications are noted. RETROPERITONEUM: Normal. ABDOMINAL WALL: Bilateral fat containing inguinal hernias. BONES: Scattered osseous degenerative changes are noted. IMPRESSION: No acute intraabdominal abnormality.
[2024-11-04 14:12] LABS: HDL Cholesterol 39 mg/dL (40-59); LDL Cholesterol 122 mg/dL (< 100)
[2024-11-04] MEDS: PHENYLEPHRINE IV 250 ML IV ONE (14:17)
[2024-11-04] MEDS: PHENYLEPHRINE HCL 10 MG/ML VL ONE (14:21)
[2024-11-04] MEDS: AMIODARONE 360mg/200mL PREMIX 200 ML IV ONE ×2 (14:25→14:30)
[2024-11-04 14:38] LABS: Base Excess -5.1 mmol/L (-2.0-3.0)
[2024-11-04] MEDS ORDERED: NITROGLYCERIN 0.4 MG SL TAB SL PRN ×2 (14:45→15:00)
[2024-11-04] MEDS: SODIUM CHLORIDE 0.9% 1,000 ML IV SCH (14:45)
[2024-11-04] MEDS ORDERED: ACETAMINOPHEN 325 MG TAB PO PRN (14:45)
[2024-11-04] MEDS ORDERED: MORPHINE SULFATE INJ 2 MG/ml SYRG IV PRN ×2 (14:45→15:00)
[2024-11-04] MEDS: CLOPIDOGREL BISULFATE 75 MG TAB ONE (14:49)
--- NOTE | 2024-11-04 15:06 | DVHHP2 ---
History of Present Illness Reason for Visit: STEMI History of Present Illness This is a 64-year-old male with history of amphetamine use in 2021 who presents to ER via EMS with chief complaint of left-sided chest pain associated with diaphoresis and nausea that is constant and nonradiating. Upon evaluation of patient in ER bed four, reports 10/10 chest pain that is unrelieved. Reviewed 12 lead EKG which shows inferior wall ST-elevation. Code STEMI activated in the ER in which Dr. Ronn golden seen patient at the bedside. The patient was able to answer all medical questions, is a poor historian. He denied recent injury or trauma to his chest. He denied experiencing chest pain, did not receive any cardiac workup in the past. The patient will be admitted under hospitalist care to the critical care unit. The patient denies headache, dizziness, changes in vision, palpitation, shortness of breath, nausea, vomiting, diarrhea, constipation and any other associated symptoms. The plan has been discussed with the patient and primary RN in which all questions concerns have been addressed. Past Surgical History: None Family History: None Smoke: No ALCOHOL: none Drugs: Other (Amphetamine use) Lives: with Family Domestic Violence: Neg Review of Systems Constitutional: Yes: Sweats Cardiovascular: Chest Pain Gastrointestinal: Nausea Allergies: Coded Allergies: NO KNOWN ALLERGIES (Unverified , 01/21/16) Medications Current Medications Medications Dose Ordered Sig/Lars Route Start Time Stop Time Status Last Admin Dose Admin Nitroglycerin 0.4 mg Q5MINP PRN SL 11/04/24 15:00 UNV Morphine Sulfate 2 mg Q30M PRN IV 11/04/24 15:00 UNV Sodium Chloride 1,000 ml @ 100 mls/hr Q10H IV 11/04/24 14:45 UNV Ondansetron HCl 4 mg Q4HP PRN IV 11/04/24 14:45 UNV Acetaminophen 650 mg Q6HP PRN PO 11/04/24 14:45 UNV Nitroglycerin 0.4 mg Q5MINP PRN SL 11/04/24 14:45 UNV Morphine Sulfate 2 mg Q30M PRN IV 11/04/24 14:45 UNV Exam Vital Signs Vital Signs Date Time Temp Pulse Resp B/P (MAP) Pulse Ox O2 Delivery O2 Flow Rate FiO2 11/04/24 13:34 94 Nasal Cannula* 4 36 11/04/24 13:31 85 9 173/129 (144) 11/04/24 13:11 98.1 98.1 General Appearance: Alert, Oriented X3, Cooperative, mild distress HEENT: Atraumatic, PERRLA, EOMI, Mucous membr. moist/pink Respiratory: Clear to auscultation, Normal air movement Cardiovascular: Normal S1, Normal S2, No murmurs Abdominal: Normal bowel sounds, Soft, No tenderness, No hepatospenomegaly, No masses Extremities: No clubbing, No cyanosis, No edema, Normal pulses, No tenderness/swelling Skin: No rashes, No breakdown Neuro: Normal speech, Strength at 5/5 X4 ext, Normal tone, Sensation intact, Cranial nerves 3-12 NL, Reflexes 2+ Psych/Mental Status: Mental status NL Labs/Xrays Labs Test 11/04/24 14:24 11/04/24 13:03 Range/Units Blood Gas Specimen Type Arterial Blood Gas Sample Site Arterial line Blood Gas Patient Temperature 37.0 Arterial Blood Date Drawn [id number] Arterial Blood pH 7.332 L 7.350-7.450 Arterial Blood Partial Pressure CO2 39.2 35.0-48.0 mmHg Arterial Blood Partial Pressure O2 62.6 L 83.0-108.0 mmHg Arterial Blood HCO3 20.3 L 21.0-28.0 mmol/L Arterial Blood Oxygen Saturation 90.6 L 94.0-98.0 % Arterial Blood Base Excess -5.1 L -2.0-3.0 mmol/L Arterial Blood Oxyhemoglobin 89.2 L 94.0-98.0 % Arterial Blood Carboxyhemoglobin 1.2 0.5-1.5 % Arterial Blood Methemoglobin 0.3 0.0-1.5 % Quinton Test N/a Blood Gas Total Hemoglobin 14.50 13.5-17.5 g/dL Blood Gas Liter Flow 3.00 Blood Gas Modality Nasal cannula Blood Gas Spontaneous Rate 20 FiO2 % 32.0 White Blood Count 8.3 4.4-10.8 10^3/uL Red Blood Count 5.35 4.5-5.90 10^6/uL Hemoglobin 16.1 13.5-17.5 g/dL Hematocrit 47.2 41.0-53.0 % Mean Corpuscular Volume 88.1 80.0-100.0 fL Mean Corpuscular Hemoglobin 30.0 28.0-32.0 pg Mean Corpuscular Hemoglobin Concent 34.1 32.0-36.0 g/dL Red Cell Distribution Width 13.9 11.8-14.3 % Platelet Count 290 140-450 10^3/uL Mean Platelet Volume 8.1 6.9-10.8 fL Neutrophils (%) (Auto) 71.7 37.0-80.0 % Lymphocytes (%) (Auto) 17.4 10.0-50.0 % Monocytes (%) (Auto) 9.2 0.0-12.0 % Eosinophils (%) (Auto) 1.1 0.0-7.0 % Basophils (%) (Auto) 0.6 0.0-2.0 % Neutrophils # (Auto) 6.0 1.6-8.6 10 ^3/uL Lymphocytes # (Auto) 1.4 0.4-5.4 10 ^3/uL Monocytes # (Auto) 0.8 0-1.3 10 ^3/uL Eosinophils # (Auto) 0.1 0-0.8 10 ^3/uL Basophils # (Auto) 0.1 0-0.2 10 ^3/uL Nucleated Red Blood Cells 0.1 % Prothrombin Time 11.7 9.3-11.8 sec Prothrombin Time INR 1.12 0.9-1.15 Activated Partial Thromboplast Time 29.6 24.5-34.5 SEC Sodium Level 144 136-145 mmol/L Potassium Level 4.1 3.5-5.1 mmol/L Chloride Level 108 H 98-107 mmol/L Carbon Dioxide Level 24 20-31 mmol/L Anion Gap 12 5-15 Blood Urea Nitrogen 15 9-23 mg/dL Creatinine 0.89 0.700-1.30 mg/dL Glomerular Filtration Rate Calc 96 >90 mL/min BUN/Creatinine Ratio 16.9 10.0-20.0 Serum Glucose 116 H 74-106 mg/dL Hemoglobin A1c 5.3 <5.7 % A1C Lactic Acid Level 1.3 0.4-2.0 mmol/L Calcium Level 9.6 8.7-10.4 mg/dL Magnesium Level 2.2 1.6-2.6 mg/dL Total Bilirubin 1.6 H 0.2-1.0 mg/dL Aspartate Amino Transferase (AST) 50 H 13-40 U/L Alanine Aminotransferase (ALT) 32 7-40 U/L Alkaline Phosphatase 110 46-116 U/L Troponin I High Sensitivity 1902 *H </=54 ng/L B-Type Natriuretic Peptide 28.78 0-100 pg/mL Total Protein 7.0 5.7-8.2 g/dL Albumin 4.5 3.2-4.8 g/dL Triglycerides Level 91 < 150 mg/dL Cholesterol Level 170 < 200 mg/dL LDL Cholesterol 122 H < 100 mg/dL HDL Cholesterol 39 L 40-59 mg/dL Lipase 65 H 12-53 U/L Thyroid Stimulating Hormone (TSH) 2.26 0.55-4.78 uIU/mL ORDERING PHYSICIAN: BRADLEY DUPONT DO PROCEDURE(s): CXRP - CHEST PORTABLE REASON: cp ORDER NUMBER(s): [id number], ACCESSION NUMBER(s): [id number] CHEST RADIOGRAPH Indication: cp Technique: Single frontal view of the chest was obtained Comparison: CHEST PORTABLE on DOS: 08/02/21 FINDINGS: Lines and Tubes: None Lungs: Or inspiratory effort with elevation of both diaphragms Pleura: No effusion. No pneumothorax. Cardiomediastinal contours: Unremarkable Bones: No acute osseous abnormality. IMPRESSION: 1. Or inspiratory effort with elevation of both diaphragms HS:Y ATED BY: KATHLEEN PIZARRO Jr., DO DICTATED DATE/TIME: 11/04/24 1344 SIGNED BY: KATHLEEN PIZARRO Jr., SIGNED DATE/TIME: 11/04/24 1344 CC: ORDERING PHYSICIAN: BRADLEY DUPONT DO PROCEDURE(s): ABPL - CT AB PEL WO CON-NO ORAL OR IV REASON: abd pain nausea ORDER NUMBER(s): [id number], ACCESSION NUMBER(s): [id number] CT CT AB PEL WO CON-NO ORAL OR IV INDICATION: abd pain nausea EXAM DATE: 11/04/2024 01:23 PM COMPARISON: CT CT AB PEL WO CON-NO ORAL OR IV on DOS: 12/11/22, CT ABD PELVIS WO CONTRAST on DOS: 10/21/21 RADIATION DOSE: CTDIvol: 24.56 mGy, DLP: 1359.85 mGy*cm PROCEDURE: Helical CT images were obtained of the abdomen and pelvis without IV contrast Sagittal and coronal reconstructions are provided. ORAL CONTRAST: None. ADDITIONAL IMAGES / REFORMATS: None All CT scans at this medical facility are performed using dose modulation techniques as appropriate to a performed exam including the following: Automated exposure control was utilized; adjustment of the MA and/or KV according to patient size; and use of iterative reconstruction technique. FINDINGS: LUNG BASE: Bibasilar atelectasis. LIVER: Normal. GALLBLADDER AND BILIARY TREE: No calcified gallstones. Normal caliber wall. No intra- or extrahepatic biliary ductal dilation. PANCREAS: Normal. SPLEEN: Normal. BOWEL: Normal. Normal appendix. ADRENALS: Normal. KIDNEYS AND URETER: Normal. BLADDER: Normal. REPRODUCTIVE ORGANS: Normal. LYMPH NODES:No lymphadenopathy. PERITONEUM: Mild mid abdominal mesenteric fat stranding, nonspecific. VESSELS: Scattered atherosclerotic calcifications are noted. RETROPERITONEUM: Normal. ABDOMINAL WALL: Bilateral fat containing inguinal hernias. BONES: Scattered osseous degenerative changes are noted. IMPRESSION: No acute intraabdominal abnormality. ATED BY: ENRIQUE POOL MD DICTATED DATE/TIME: 11/04/24 140 SIGNED BY: ENRIQUE POOL MD SIGNED DATE/TIME: 11/04/24 140 CC: Assessment/Plan Assessment/Plan STEMI--patient presents to ED via EMS with inferior wall ST-elevation Code STEMI activated in the ER-Dr. Brody made aware and center medical and lab director team Patient complain of 10/10 nonradiating chest pain associated with diaphoresis and nausea that started yesterday progressively worse today History of amphetamine use Patient coded in the center medical and lab director went into VFib got shocked 8 times and placed on amiodarone drip Admit to critical care unit for continuous monitoring ACS protocol Reviewed CBC which is normal Reviewed BMP troponin elevated 1902 Coags within normal limits TSH pending Lipid panel pending HGB A1c 5.3 Reviewed chest x-ray which is normal Reviewed CT abdomen/pelvis which is normal IV hydration IV amiodarone drip that was started in the center medical and lab director IV Tuan-Synephrine as needed IV Protonix now and daily NPO DVT prophylaxis Cardiology consult Dr. Brody Reconcile home medication DVT prophylaxis PUD prophylaxis Labs in a.m. Discussed plan of care with the patient and primary RN in which all questions concerns have been addressed Plan discussed with: Patient My Orders Orders - LEANDRO BRADY Procedure Category Date Status Time Admit ADMIT 11/04/24 Transmitted 14:41 Sodium Chloride 0.9% PHA 11/04/24 Logged 14:45 Ondansetron Hcl PHA 11/04/24 Logged (Zofran) 14:45 Complete Blood Count LAB 11/05/24 Verified 04:00 Condition: Critical FRANCISCO JAVIER 11/04/24 In Process 14:41 Acetaminophen Tablet PHA 11/04/24 Logged (Tylenol Tablet) 14:45 Maintain Bed Rest FRANCISCO JAVIER 11/04/24 In Process 14:41 Nitroglycerin PHA 11/04/24 Logged Sublingual (Ntrostat 14:45 Morphine Sulfate PHA 11/04/24 Logged Injection 14:45 Oxygen By Nasal RT 11/04/24 Transmitted Cannula 14:41 Date of Service: Nov 04, 2024 Billing Provider: LEANDRO BRADY Common Visit Codes: 69990-CWDVREOL CARE 30-74 MIN LEANDRO BRADY Nov 04, 2024 15:06
[2024-11-04] MEDS: PHENYLEPHRINE IV 250 ML IV SCH (16:00)
--- NOTE | 2024-11-04 16:59 | DVHSR ---
APPROVED REPORT EXAM: LIMITED Two-dimensional and M-mode echocardiogram with Doppler and color Doppler. Blood Pressure: 173/129 mmHg INDICATION STEMI RISK FACTORS Height: 5' 10", Weight: 207 DIMENSIONS LVDd4.9 (3.8-5.7cm)LA (2D)3.4 (1.9-4.0cm)Aortic Root3.5 (2.0-3.7cm) LVDs4.0 (2.5-4.0cm)LA (MM) (1.9-4.0cm)Aortic Cusp Exc1.9 (1.5-2.0cm) EF (%) 40.0 (55-70%)Rt. Atrium3.7 (1.9-4.0cm)Asc. Aorta cm IVSd1.3 (0.7-1.1cm)RV (D) (1.8-2.4cm) PWd1.1 (0.7-1.1cm) Mitral Valve MitralMitral Stenosis E wave0.60m/sMV Mean GR.mmHg A wave1.00m/sMV Peak GR.mmHg E/A ratio0.62D MVAcm2 Aortic Valve Aortic ValveAortic Stenosis V10.70m/Anselmo Mean GR.3mmHg V21.20m/Anselmo Peak GR.6mmHg LVOT Diameter2.1 (1.8-2.4cm)Doppler AVA2.02cm2 AI P 1/2 Tqif460.75ms Pulmonic Valve V20.60m/s Other Information Quality : Technically LimitedRhythm : Technically limited study due to body habitus, patient can not turn due to heart cath. Conclusion Technically difficult study. Sinus rhythm. Concentric LVH. Enlarged aortic root. Mild aortic sclerosis. There is a sluggish left ventricular function. EF is approximately 35% with predominant inferior hyp okinesis. There is moderate aortic insufficiency. Mild TR. No pericardial effusion masses or vegetations.
[2024-11-04] MEDS ORDERED: EPINEPHrine HCL 1 MG/10 ML SYRG IV ONE (17:46)
--- NOTE | 2024-11-04 18:17 | DVHOP2 ---
Operative Report - 2 Report Details Date: 11/04/24 Preop Diagnosis: Acute ST-elevation myocardial infarction Postop Diagnosis: Acute ST-elevation myocardial infarction. Occluded RCA. Cardiomyopathy. Successful PTCA and stenting of the RCA Surgeon: Abelardo Brody MD Anesthesiologist: Conscious sedation. Anesthesia: Mac, Local ( Versed and fentanyl were ordered Lidia procedure. I monitored the patient personally that while the entirety of the case.) Consent: The patient was informed of the risks and benefits of the procedure. These include but are not limited to complications of anesthesia, postoperative infection, incomplete relief of symptoms, recurrence of symptoms, damage to blood vessels, nerves and tendons, deep venous thrombosis, pulmonary embolism and possible need for repeat surgery in the future. Complications: Patient developed ventricular fibrillation secondary to reperfusion injury. Patient recovered hemodynamic stability subsequent to DC cardioversion x8 and IV antiarrhythmic therapy subsequent to reperfusion and stenting of the RCA Estimated Blood Loss: 5 cc Findings: RCA occlusion. Cardiomyopathy Indications for Surgery: Acute myocardial infarction Name of Procedure Performed Left heart catheterization bilateral cine coronary angiography. Left ventriculography. PTCA and stenting of the RCA. DC cardioversion. Procedure Details Procedure Details: Prior local anesthesia with 2% lidocaine to the right wrist and full informed consent obtained the patient was prepped and draped in usual fashion followed by placement of a six [place] sheath in the right radial artery subsequent to which a three five EBU guide was placed into the ventricle RCA and left coronary for angiographic and angioplasty purposes. Hemodynamics: Aortic blood pressure was 100/50. End-diastolic pressure was 18. There was no gradient across the aortic valve on pullback. Coronary anatomy: The RCA is on % occluded proximally. Left main is large and normal. Left anterior descending coronary artery is large with mild plaquing. No significant critical lesions in the LAD or diagonals. The circumflex is normal in its proximal mid and distal segments two marginals are free of significant disease. Angioplasty was performed of the RCA for which a Specter wire was placed distally and dilation of the proximal RCA with a two five balloon reestablishing flow. Shortly after reestablishing flow the patient had ventricular fibrillation that required cardioversion x8. patient also required antiarrhythmic medications. Stenting with a 4.5 by 18 mm stent was deployed into the proximal RCA at approximately 18 atmospheres. There was excellent antegrade flow without thrombus formation under dissection. During the time of ventricular fibrillation the patients blood pressure and coronary a short course of CPR was instituted. Subsequent to DC cardioversion and CPR as well as medications the patient regained spontaneous respiration and circulation. . The right coronary artery remained open subsequent to stenting. After patient is stabilized we pulled the arterial sheath from the radial artery and transferred the patient to the intensive care unit. Impression: Successful PTCA and stenting of the RCA for acute ST-elevation myocardial infarction. Successful DC cardioversion for VFib / V-tach secondary to reperfusion arrhythmias. Patient will continue on amiodarone for 24 hours. Continue with dual antiplatelet therapy. Risk factor modification lipid- lowering therapy. Condition Good Disposition Still a Patient Date of Service: Nov 04, 2024 Billing Provider: ABELARDO BRODY Sr., MD Cardiology Common Codes: 03920-DMVRUFB INP/OBS CARE (High) Cardiology Procedure Codes: 60874 -PTCA W/STENT PLACEMENT, 18671-BQNK FOR STEMI W/STENT Cardiology Consultation Codes: 42256-AIKSBHYSL CONSULT <35MIN ( Coordination of care perioperatively), 79005-YATTFCMPR CONSULT <45MIN ( coordination of care perioperatively) ABELARDO BRODY Sr., MD Nov 04, 2024 18:17
--- NOTE | 2024-11-04 18:55 | DVHINCON2 ---
Date of service: Nov 04, 2024 Referring Physician Ted Brody MD Reason for Consultation Acute hypoxic respiratory failure History of Present Illness A 64-year-old man with no significant past medical history except sciatica who presents to ED via EMS today with chief complaint of left-sided chest pain associated with diaphoresis and nausea; pain is constant and nonradiating. While in the ED, patient reported 10/10 chest pain that is unrelieved. 12 lead EKG showed inferior wall ST-elevation. Code STEMI was activated. Patient is a poor historian. He denied recent injury or trauma to his chest. Denied having cardiac workup in the past or family history of heart disease. Patient was admitted for further care, and pulmonary consultation is requested for evaluation and management of acute hypoxic respiratory failure. Review of Systems: 14-point review of systems negative unless otherwise noted above. Past Medical History: Sciatica Past Surgical History: None Medications: Reviewed. Allergies: No known drug allergies. Family History: No family history of premature CAD. No family history of lung disorders. Social History: Nonsmoker. No alcohol use. Positive methamphetamine abuse. Family History: Patient reports no known family medical history. Allergies: Coded Allergies: NO KNOWN ALLERGIES (Unverified , 01/21/16) Home Meds Active Scripts Acetaminophen W/ Codeine (Tylenol W/Cod #3) 1 Tab Tb, 1 TAB PO Q6HPRN, #10 TAB 0 Refills Prov:CIRILO LACEY 01/18/24 Cyclobenzaprine Hcl (Cyclobenzaprine Hcl) 5 Mg Tab, 1 TAB PO QHSP, #14 TAB 0 Refills Prov:CIRILO LACEY 01/18/24 Gentamicin Sulfate (Gentamicin Sulfate) 0.3 % Shikha, 1 DROP OP Q4HR for 5 Days, #5 DROP Prov:LELA ALCARAZ MD 12/11/22 Polymyxin B-Trimethoprim (Trimethoprim Sulfate/Poly) Polymyxn Shikha, 1 DROP OP Q3HR for 7 Days, #1 BOTTLE 0 Refills Prov:CIRILO LACEY 12/02/21 Current Medications Current Medications Medications (Trade) Dose Ordered Sig/Lars Route PRN Reason Start Time Stop Time Status Last Admin Nitroglycerin (Ntrostat Sublingual) 0.4 mg Q5MINP PRN SL FOR CHEST PAIN 11/04/24 15:00 Morphine Sulfate 2 mg Q30M PRN IV FOR CHEST PAIN 11/04/24 15:00 Sodium Chloride 1,000 ml @ 100 mls/hr Q10H IV 11/04/24 14:45 11/04/24 14:45 Ondansetron HCl (Zofran) 4 mg Q4HP PRN IV NAUSEA / VOMITING 11/04/24 14:45 Acetaminophen (Tylenol Tablet) 650 mg Q6HP PRN PO PAIN SCALE 1-3 OR TEMP>100.4 11/04/24 14:45 Nitroglycerin (Ntrostat Sublingual) 0.4 mg Q5MINP PRN SL FOR CHEST PAIN 11/04/24 14:45 UNV Morphine Sulfate 2 mg Q30M PRN IV FOR CHEST PAIN 11/04/24 14:45 UNV Enoxaparin Sodium (Lovenox) 40 mg DAILY SC 11/05/24 10:00 Phenylephrine HCl 250 ml @ 30 mls/hr Q8H20M IV 11/04/24 16:00 Morphine Sulfate 2 mg Q4HPRN PRN IV MODERATE PAIN (4-6 PAIN SCALE) 11/04/24 18:00 Vital Signs Vital Signs Date Time Temp Pulse Resp B/P (MAP) Pulse Ox O2 Delivery O2 Flow Rate FiO2 11/04/24 18:00 78 11/04/24 17:19 13 100 Nasal Cannula* 3 32 11/04/24 17:00 140/99 (113) 11/04/24 16:00 97.7 97.7 Physical Exam Gen.: Patient lying in bed in no apparent distress. On supplemental oxygen. Head: Normocephalic, atraumatic. Eyes: EOMI/PERRLA. Ears: Normal hearing. Normal anatomy. Neck/trachea: Trachea midline, supple. Nose: Normal external anatomy. Mouth: Moist mucous membranes. Chest: Decreased air entry bilaterally. No wheezing or rhonchi. Cardiovascular: Positive S1, positive S2. Regular rate and rhythm. Abdomen: Positive bowel sounds in all 4 quadrants. Soft, non-tender, non- distended. : Deferred. Rectal: Deferred. Skin: Warm, dry. Intact. Extremities: 2+ radial pulses bilaterally. No lower extremity edema. Neuro: Awake, alert, oriented x3. No gross motor or sensory deficits. Cranial nerves II through XII intact. Gait not assessed. Labs/Diagnostic Data Labs Test 11/04/24 18:31 11/04/24 14:24 11/04/24 13:03 Range/Units Blood Gas Specimen Type Arterial Blood Gas Sample Site Arterial line Blood Gas Patient Temperature 37.0 Arterial Blood Date Drawn [id number] Arterial Blood pH 7.332 L 7.350-7.450 Arterial Blood Partial Pressure CO2 39.2 35.0-48.0 mmHg Arterial Blood Partial Pressure O2 62.6 L 83.0-108.0 mmHg Arterial Blood HCO3 20.3 L 21.0-28.0 mmol/L Arterial Blood Oxygen Saturation 90.6 L 94.0-98.0 % Arterial Blood Base Excess -5.1 L -2.0-3.0 mmol/L Arterial Blood Oxyhemoglobin 89.2 L 94.0-98.0 % Arterial Blood Carboxyhemoglobin 1.2 0.5-1.5 % Arterial Blood Methemoglobin 0.3 0.0-1.5 % Quinton Test N/a Blood Gas Total Hemoglobin 14.50 13.5-17.5 g/dL Blood Gas Liter Flow 3.00 Blood Gas Modality Nasal cannula Blood Gas Spontaneous Rate 20 FiO2 % 32.0 White Blood Count 8.3 4.4-10.8 10^3/uL Red Blood Count 5.35 4.5-5.90 10^6/uL Hemoglobin 16.1 13.5-17.5 g/dL Hematocrit 47.2 41.0-53.0 % Mean Corpuscular Volume 88.1 80.0-100.0 fL Mean Corpuscular Hemoglobin 30.0 28.0-32.0 pg Mean Corpuscular Hemoglobin Concent 34.1 32.0-36.0 g/dL Red Cell Distribution Width 13.9 11.8-14.3 % Platelet Count 290 140-450 10^3/uL Mean Platelet Volume 8.1 6.9-10.8 fL Neutrophils (%) (Auto) 71.7 37.0-80.0 % Lymphocytes (%) (Auto) 17.4 10.0-50.0 % Monocytes (%) (Auto) 9.2 0.0-12.0 % Eosinophils (%) (Auto) 1.1 0.0-7.0 % Basophils (%) (Auto) 0.6 0.0-2.0 % Neutrophils # (Auto) 6.0 1.6-8.6 10 ^3/uL Lymphocytes # (Auto) 1.4 0.4-5.4 10 ^3/uL Monocytes # (Auto) 0.8 0-1.3 10 ^3/uL Eosinophils # (Auto) 0.1 0-0.8 10 ^3/uL Basophils # (Auto) 0.1 0-0.2 10 ^3/uL Nucleated Red Blood Cells 0.1 % Prothrombin Time 11.7 9.3-11.8 sec Prothrombin Time INR 1.12 0.9-1.15 Activated Partial Thromboplast Time 29.6 24.5-34.5 SEC Sodium Level 144 136-145 mmol/L Potassium Level 4.1 3.5-5.1 mmol/L Chloride Level 108 H 98-107 mmol/L Carbon Dioxide Level 24 20-31 mmol/L Anion Gap 12 5-15 Blood Urea Nitrogen 15 9-23 mg/dL Creatinine 0.89 0.700-1.30 mg/dL Glomerular Filtration Rate Calc 96 >90 mL/min BUN/Creatinine Ratio 16.9 10.0-20.0 Serum Glucose 116 H 74-106 mg/dL Hemoglobin A1c 5.3 <5.7 % A1C Lactic Acid Level 1.3 0.4-2.0 mmol/L Calcium Level 9.6 8.7-10.4 mg/dL Magnesium Level 2.2 1.6-2.6 mg/dL Total Bilirubin 1.6 H 0.2-1.0 mg/dL Aspartate Amino Transferase (AST) 50 H 13-40 U/L Alanine Aminotransferase (ALT) 32 7-40 U/L Alkaline Phosphatase 110 46-116 U/L B-Type Natriuretic Peptide 28.78 0-100 pg/mL Total Protein 7.0 5.7-8.2 g/dL Albumin 4.5 3.2-4.8 g/dL Triglycerides Level 91 < 150 mg/dL Cholesterol Level 170 < 200 mg/dL LDL Cholesterol 122 H < 100 mg/dL HDL Cholesterol 39 L 40-59 mg/dL Lipase 65 H 12-53 U/L Thyroid Stimulating Hormone (TSH) 2.26 0.55-4.78 uIU/mL Assessment Impression: Acute hypoxic respiratory failure Dependence on supplemental oxygen s/p Cardiac arrest ROSC Methamphetamine abuse Ventricular tachycardia Obesity, BMI 30.8 Plan: Supplemental oxygen 5 LPM NC Titrate to keep O2 sats above 92%. Taper O2 as tolerated. On pressors for hemodynamic support Tuan-Synephrine 40 mcg/min Titrate to keep mean arterial pressure greater than 65 mmHg. Amiodarone drip. S/p cardiac arrest S/p cardiac catheterization Cardiology recs appreciated. Pain control Avoid oversedation Monitor renal function. Monitor electrolytes. Supplement as necessary. Monitor ins and outs. GI prophylaxis- Protonix DVT prophylaxis. Prognosis: Poor given patient's multiple co-morbidities. Condition: Critical Rest of plan per hospitalist and other consultants. A total of 35 minutes of critical care time was spent reviewing the patient record, examining the patient, making a diagnostic and therapeutic plan, discussing this plan with the medical personnel, following up on diagnostic studies and following the patient for clinical stability excluding any and all procedures. At least 50% of this time was spent in direct, [id number] contact. Thank you, Dr. Brody, for allowing me to participate in this patient's care. Further recommendations will depend on the patient's clinical course. Please do not hesitate to contact me if you have any questions or concerns. This medical document was created using an electronic medical record system with [employer] dictation system. Although these documentations are being carefully reviewed, there may still be some phonetic and typographical changes. The errors are purely typographical, due to imperfection on the software program, and do not reflect any compromise in the patient's medical care. Plan discussed with: Other (LATIA Carbajal/Dr. Brody) ROSE ACOSTA MD Nov 04, 2024 18:55
--- NOTE | 2024-11-04 20:35 | RESUS ---
CODE BLUE ASSESSSMENT History of Events History of Events: ARRIVED TO ER CHEST PAIN, STEMI CALLED AND CODE BLUE CALLED IN [facility]. PATIENT IN VTACH WITH PULSE UPON ARRIVAL. Initial Information Date: Nov 04, 2024 Time: 14:15 Location of Arrest: [facility] Arrest Witnessed: Yes CPR started by whom: Hospital Staff Type of arrest: Cardiac, Adult, Witnessed Spontaneous Respirations: Yes Pulse Present: Yes Monitoring: ECG, Pulse Oximetry Crash Cart Opened and Supplies: Yes Defibrillation Defbrillation : EKG Rhythm: V-Tachycardia, V-Fibrillation Comment DEFIB PADS APPLIED IN ER AFTER STEMI WAS PAGED Nurses Notes Linda Coma Scale Eye Opening: To Pain (2) Linda Coma Scale Verbal: None (1) (SEDATION MEDS GIVEN SEE EMR) [place] Coma Scale Motor: Localizes to Pain (5) Pupil Reaction: Brisk Nurses Notes - Comment: PATIENT WAS DEFIBRILATED 8 TIMES PER [facility]ITY LIAISON LATIA BALDWIN. 1ST TIME 120 JOULES, 2ND TIME 150 JOULES AND THE REST 200 JOULES. UPON ARRIVAL TO [facility] PATIENT WAS SHOCKED (8TH TIME) FOR VTACH WITH PULSE AND CONVERTED TO SR HR 84, BP 92/43 IWTH PULSE OX 100%. 1 AMP HCO3 GIVEN AND ABG OBTAINED. AIRWAY MAINTAINED VON 2 LPM 02 VIA NC. NEOSYNEPHRINE ALREADY STARTED AT STARTING RATE. AMIODARONE DRIP STARTED PER ORDER. PATIENT WAS ASSIGNED ICU BED 101. SYSTOLIC BP 114 AFTER SUCCESSFUL CARDIOVERSION TO SINUS RHYTHM. Time Code Ended Time Code Ended: 14:19 Post Arrest Status: Awake, Spontaneous Breathing Outcome of code: Successful Code Team Present: PORFIRIO CARREON MUD TRUCKER, NICOLASA JEFFERY [facility], JAMESON JEFFERY [facility], MARIZOL JEFFERY ICU, CHARLENE JEFFERY ICU, MAHAMED RAMIREZ TECH, MAXIME FIELDS RT Post Resuscitation Neurologica Pupil Size: 2 Porfirio King Nov 04, 2024 20:35
[2024-11-04 21:59] LABS: Chloride 108 mmol/L (98-107); Potassium 3.9 mmol/L (3.5-5.1); Sodium 143 mmol/L (136-145)
[2024-11-04 22:00] LABS: Anion Gap 13 (5-15); Calcium 9.5 mg/dL (8.7-10.4); Carbon Dioxide 22 mmol/L (20-31)
[2024-11-04] MEDS ORDERED: AMIODARONE 360mg/200mL PREMIX 200 ML IV SCH (22:01)
[2024-11-04 22:05] LABS: BUN/Creatinine Ratio 12.4 (10.0-20.0); Blood Urea Nitrogen 12 mg/dL (9-23)
[2024-11-04 22:06] LABS: Magnesium 2.3 mg/dL (1.6-2.6)
[2024-11-04 22:13] LABS: Glucose 114 mg/dL (74-106)
[2024-11-04] MEDS: ATORVASTATIN 20 MG TAB PO SCH (22:51)
[2024-11-04] MEDS: AMIODARONE 360mg/200mL PREMIX 200 ML IV SCH (22:52)
[2024-11-04 23:42] LABS: Potassium 4.5 mmol/L (3.5-5.1); Sodium 140 mmol/L (136-145)
[2024-11-04 23:43] LABS: Anion Gap 8 (5-15); Calcium 8.8 mg/dL (8.7-10.4); Carbon Dioxide 24 mmol/L (20-31)
[2024-11-04 23:46] LABS: Chloride 108 mmol/L (98-107)
[2024-11-04 23:48] LABS: BUN/Creatinine Ratio 14.6 (10.0-20.0); Blood Urea Nitrogen 13 mg/dL (9-23); Magnesium 2.2 mg/dL (1.6-2.6)
[2024-11-04 23:51] LABS: Glucose 161 mg/dL (74-106)
[2024-11-05] VITALS (86 sets, daily range): BP systolic 112–171; BP diastolic 77–114; PULSE 61–90; RESP 11–33; TEMP 98.1–99.1; O2SAT 89–100
[2024-11-05 01:48] LABS: Urine Bacteria None Seen /hpf (None Seen)
[2024-11-05 02:20] LABS: Urine Blood Negative /uL (Negative); Urine Clarity Clear (Clear); Urine Color Yellow (Yellow); Urine Hyaline Cast FEW /lpf (0 - 2); Urine Mucus FEW (None Seen); Urine Protein, UAD 1+ (Negative); Urine Squamous Epithelial Cell None Seen /hpf (<5); Urine Urobilinogen Normal (Negative); Urine WBC < 1 /HPF (0-3); Urine pH 5.5 (5.0-9.0)
[2024-11-05 04:01] LABS: Basophils # (auto) 0 10 ^3/uL (0-0.2); Basophils % (auto) 0.5 % (0.0-2.0); Eosinophils # (auto) 0.1 10 ^3/uL (0-0.8); Eosinophils % (auto) 1.2 % (0.0-7.0); Hematocrit 43.1 % (41.0-53.0); Hemoglobin 14.8 g/dL (13.5-17.5); Lymphocytes # (auto) 1.3 10 ^3/uL (0.4-5.4); Lymphocytes % (auto) 14.2 % (10.0-50.0); Mean Corpuscular Hemoglobin 30.4 pg (28.0-32.0); Mean Corpuscular Hgb Conc. 34.3 g/dL (32.0-36.0); Mean Corpuscular Volume 88.6 fL (80.0-100.0); Monocytes # (auto) 0.9 10 ^3/uL (0-1.3); Monocytes % (auto) 9.5 % (0.0-12.0); Neutrophils # (auto) 6.9 10 ^3/uL (1.6-8.6); Neutrophils % (auto) 74.6 % (37.0-80.0); Platelet Count (auto) 249 10^3/uL (140-450); Red Blood Cells 4.86 10^6/uL (4.5-5.90); Red Cell Distribution Width 14.2 % (11.8-14.3); White Blood Cell 9.2 10^3/uL (4.4-10.8)
[2024-11-05 04:12] LABS: Amphetamine Screen, Urine Pos (NEGATIVE); Barbiturate Scree,Urine Neg (NEGATIVE); Benzodiazephine Screen, Urine Pos (NEGATIVE); Cocaine Screen, Urine Neg (NEGATIVE); Opiate Scree,Urine Pos (NEGATIVE)
[2024-11-05] MEDS: ONDANSETRON HCL 4 MG/2 ML VIAL IV PRN (04:21)
[2024-11-05 04:29] LABS: Cannabinoid Screen, Urine Neg (NEGATIVE)
[2024-11-05 04:30] LABS: Phencyclidine Screen, Urine Neg (NEGATIVE)
[2024-11-05 04:31] LABS: Albumin 3.9 g/dL (3.2-4.8); Alkaline Phosphatase 98 U/L (46-116); BUN/Creatinine Ratio 13.1 (10.0-20.0); Blood Urea Nitrogen 13 mg/dL (9-23); Chloride 105 mmol/L (98-107); Potassium 4.3 mmol/L (3.5-5.1); Sodium 141 mmol/L (136-145); Total Protein 6.4 g/dL (5.7-8.2)
[2024-11-05 04:39] LABS: Alanine Aminotransferase 44 U/L (7-40); Aspartate Aminotransferase 182 U/L (13-40); Calcium 8.7 mg/dL (8.7-10.4); Glucose 157 mg/dL (74-106)
[2024-11-05 05:07] LABS: Bilirubin, Total 0.6 mg/dL (0.2-1.0)
[2024-11-05 05:14] LABS: Anion Gap 11 (5-15); Carbon Dioxide 25 mmol/L (20-31)
[2024-11-05] MEDS: MORPHINE SULFATE INJ 2 MG/ml SYRG IV PRN (06:29)
[2024-11-05] MEDS: CLOPIDOGREL BISULFATE 75 MG TAB PO SCH (10:06)
[2024-11-05] MEDS: ASPirin 81 mg TAB PO SCH (10:06)
[2024-11-05] MEDS: ENOXAPARIN SOD 40 MG/0.4 ML SYRINGE SC SCH (10:07)
--- NOTE | 2024-11-05 11:24 | DVHPN2 ---
Assessment/Plan Assessment/Plan Progress note 64 yo M with meth use admitted for STEMI, had vfib arrest in the lab, s/p DCCV x8 to ROSC, now off phenylephrine. telemetry with NSVT. no active chest pain at the moment Physical exam AOx3 cler breath sounds s1 s2 RRR no murmur abdomen soft nontender trace LE edema Labs EKG imaging reviewed Assessment and plan STEMI s/p PCI DESx1 in RCA vfib reperfussion s/p DCCV acute systolic heart failure HFrEF 30% acute hypoxic respiratory failure hyperlipidemia aortic regurgitation c/w o2 supp maintain spo2 >94 c/w asa plavix lipitor c/w amio drip inititate coreg, jardiance, entresto hold aldactone strict io daily weight diet cardiac dvt ppx lovenox code status full code critical care time 60 minutes Plan discussed with: Patient My Orders Orders - JOHNY ROMERO MD Procedure Category Date Status Time Carvedilol Tablet PHA 11/05/24 Logged (Coreg Tablet) 22:00 Empagliflozin PHA 11/06/24 Logged (Jardiance) 10:00 Sacubitril-Valsartan PHA 11/05/24 Logged (Entresto 24-26 Mg 22:00 Basic Metabolic Panel LAB 11/06/24 Verified 04:00 Complete Blood Count LAB 11/06/24 Verified 04:00 Magnesium LAB 11/06/24 Verified 04:00 Phosphorus LAB 11/06/24 Verified 04:00 Strict I & O FRANCISCO JAVIER 11/05/24 In Process 11:22 Daily Weight FRANCISCO JAVIER 11/05/24 In Process 11:22 Date of Service: Nov 05, 2024 Billing Provider: JOHNY ROMERO MD Common Visit Codes: [id number] CARE 30-74 MIN JOHNY ROMERO MD Nov 05, 2024 11:24
[2024-11-05] MEDS: AMIODARONE HCL 200 MG TAB PO ONE (16:50)
--- NOTE | 2024-11-05 17:03 | DVHPN2 ---
Consult Progress Note Subjective Other Systems: Patient in normal sinus rhythm on telemetry monitor at time of assessment Nonsustained V-tach episodes on telemetry monitor Objective vital signs Vital Sign Date Time Temp Pulse Resp B/P (MAP) Pulse Ox O2 Delivery O2 Flow Rate FiO2 11/05/24 16:30 70 18 144/97 (113) 99 11/05/24 16:00 98.4 98.4 11/05/24 16:00 Nasal Cannula* 3 32 Total Intake and Output 11/04/24 11/04/24 11/05/24 15:00 23:00 07:00 Intake Total 1502.49 ml 2016.46 ml Output Total 650 ml Balance 1502.49 ml 1366.46 ml medications Current Medications Medications Dose Ordered Sig/Lars Route Start Time Stop Time Status Last Admin Dose Admin Nitroglycerin 0.4 mg Q5MINP PRN SL 11/04/24 15:00 Morphine Sulfate 2 mg Q30M PRN IV 11/04/24 15:00 Ondansetron HCl 4 mg Q4HP PRN IV 11/04/24 14:45 11/05/24 04:21 4 MG Acetaminophen 650 mg Q6HP PRN PO 11/04/24 14:45 Nitroglycerin 0.4 mg Q5MINP PRN SL 11/04/24 14:45 UNV Morphine Sulfate 2 mg Q30M PRN IV 11/04/24 14:45 UNV Enoxaparin Sodium 40 mg DAILY SC 11/05/24 10:00 11/05/24 10:07 40 MG Phenylephrine HCl 250 ml @ 30 mls/hr Q8H20M IV 11/04/24 16:00 Morphine Sulfate 2 mg Q4HPRN PRN IV 11/04/24 18:00 11/05/24 06:29 2 MG Aspirin 81 mg DAILY PO 11/05/24 10:00 11/05/24 10:06 81 MG Clopidogrel Bisulfate 75 mg DAILY PO 11/05/24 10:00 11/05/24 10:06 75 MG Atorvastatin Calcium 40 mg HS PO 11/04/24 22:00 11/04/24 22:51 40 MG Carvedilol 3.125 mg Q12HR PO 11/05/24 22:00 Empaglifozin 10 mg DAILY PO 11/06/24 10:00 Sacubitril/ Valsartan 1 tab BID PO 11/05/24 22:00 Amiodarone HCl 200 mg Q12HR PO 11/05/24 22:00 UNV Examination: GENERAL:Normal, LUNGS:Normal, CVS:Normal, NEURO:Normal laboratory and microbiology Laboratory Tests 11/05/24 03:16 Test 11/05/24 03:16 Range/Units Serum Glucose 157 H 74-106 mg/dL Problem List/Assessment/Plan Problem List/Assessment/Plan Acute inferior wall ST-elevation myocardial infarction s/p PTCA x 1 ANNETTE to RCA Ventricular fibrillation status post direct current cardioversion x 8 Nonsustained ventricular tachycardia Chronic compensated HFrEF, NYHA class III Hypertensive emergency Amphetamine abuse Obesity Plan/recommendations (Dr. Brody): The patient with acute ST-elevation myocardial infarction was taken to the cardiac cath rn and underwent a coronary angiogram with left heart catheterization with successful PTCA and stenting of the RCA. While in cardiac cath rn, the patient had episodes of ventricular fibrillation that required cardioversion x8. Transthoracic echocardiogram reveals an EF of 35%. Initiate guideline directed medical therapy for CHF as tolerated. Add MRA with stable potassium. At this time we will recommend to continue with dual antiplatelet therapy, lipid- lowering agent, and antiarrhythmic agent. Continue with close cardiac surveillance. Thank you for allowing us to care for this patient. Please call with any questions or concerns. Critical care time spent: 36 minutes. This medical document was created using an electronic medical record system with voice recognition software and computerized dictation system. Although this document has been carefully reviewed, there might still be some phonetic and typographical errors. Occasional wrong-word or ``sound-alike substitutions may have occurred due to the inherent limitations of voice recognition software. These areas are purely typographical due to imperfections of the software programs and do not reflect any compromise in the patient's medical care. Please read the chart carefully and recognize, using context, where these substitutions have occurred. Plan discussed with: Patient Date of Service: Nov 05, 2024 Billing Provider: EDU ARGUETA Common Visit Codes: [id number] CARE 30-74 MIN EDU ARGUETA Nov 05, 2024 17:03
[2024-11-05] MEDS: SACUBITRIL-VALSARTAN 24mg/26mg TAB PO SCH (21:36)
[2024-11-05] MEDS: AMIODARONE HCL 200 MG TAB PO SCH (21:37)
[2024-11-05] MEDS: CARVEDILOL 3.125 MG TAB PO SCH (22:56)
--- NOTE | 2024-11-05 23:48 | DVHPN2 ---
Progress Note - Dictate Date Seen: Nov 05, 2024 Medical Necessity Reason Pt with a Central, PICC or Fol: No Subjective Patient seen and examined at bedside. Remains on supplemental oxygen Overnight events reviewed. vital signs Vital Sign Date Time Temp Pulse Resp B/P (MAP) Pulse Ox O2 Delivery O2 Flow Rate FiO2 11/05/24 22:56 68 173/115 11/05/24 22:00 21 95 Nasal Cannula* 5 40 11/05/24 20:00 99.1 99.1 Total Intake and Output 11/04/24 11/04/24 11/05/24 15:00 23:00 07:00 Intake Total 1502.49 ml 2016.46 ml Output Total 650 ml Balance 1502.49 ml 1366.46 ml medications Current Medications Medications Dose Ordered Sig/Lars Route Start Time Stop Time Status Last Admin Dose Admin Nitroglycerin 0.4 mg Q5MINP PRN SL 11/04/24 15:00 Morphine Sulfate 2 mg Q30M PRN IV 11/04/24 15:00 Ondansetron HCl 4 mg Q4HP PRN IV 11/04/24 14:45 11/05/24 04:21 4 MG Acetaminophen 650 mg Q6HP PRN PO 11/04/24 14:45 Nitroglycerin 0.4 mg Q5MINP PRN SL 11/04/24 14:45 UNV Morphine Sulfate 2 mg Q30M PRN IV 11/04/24 14:45 UNV Enoxaparin Sodium 40 mg DAILY SC 11/05/24 10:00 11/05/24 10:07 40 MG Morphine Sulfate 2 mg Q4HPRN PRN IV 11/04/24 18:00 11/05/24 06:29 2 MG Aspirin 81 mg DAILY PO 11/05/24 10:00 11/05/24 10:06 81 MG Clopidogrel Bisulfate 75 mg DAILY PO 11/05/24 10:00 11/05/24 10:06 75 MG Atorvastatin Calcium 40 mg HS PO 11/04/24 22:00 11/05/24 21:36 40 MG Carvedilol 3.125 mg Q12HR PO 11/05/24 22:00 11/05/24 22:56 3.125 MG Empaglifozin 10 mg DAILY PO 11/06/24 10:00 Sacubitril/ Valsartan 1 tab BID PO 11/05/24 22:00 11/05/24 21:36 1 TAB Amiodarone HCl 200 mg Q12HR PO 11/05/24 22:00 11/05/24 21:37 200 MG objective Gen.: Patient lying in bed in no apparent distress. On supplemental oxygen. Head: Normocephalic, atraumatic. Eyes: EOMI/PERRLA. Ears: Normal hearing. Normal anatomy. Neck/trachea: Trachea midline, supple. Nose: Normal external anatomy. Mouth: Moist mucous membranes. Chest: Decreased air entry bilaterally. No wheezing or rhonchi. Cardiovascular: Positive S1, positive S2. Regular rate and rhythm. Abdomen: Positive bowel sounds in all 4 quadrants. Soft, non-tender, non- distended. : Deferred. Rectal: Deferred. Skin: Warm, dry. Intact. Extremities: 2+ radial pulses bilaterally. No lower extremity edema. Neuro: Awake, alert, oriented x3. No gross motor or sensory deficits. Cranial nerves II through XII intact. Gait not assessed. laboratory and microbiology Laboratory Tests 11/05/24 03:16 Test 11/05/24 03:16 Range/Units Serum Glucose 157 H 74-106 mg/dL Assessment/Plan Impression: Acute hypoxic respiratory failure Dependence on supplemental oxygen Cardiac arrest Methamphetamine abuse Ventricular tachycardia Events: Remains on supplemental oxygen, 3 LPM NC Taper O2 as tolerated Off pressors, hemodynamically stable. Transitioned from amiodarone drip to amiodarone PO. Cardiology recs appreciated. Angiocath removal. Incentive spirometry Patient is stable for downgrade from the pulmonary standpoint. Labs and imaging reviewed. Rest of plan as noted below. Plan: Supplemental oxygen Titrate to keep O2 sats above 92%. S/p cardiac arrest S/p cardiac catheterization, PTCA and stenting of the RCA Cardiology recs appreciated. On Plavix, aspirin Amiodarone PO. Pain control Avoid oversedation Monitor renal function. Monitor electrolytes. Supplement as necessary. Monitor ins and outs. GI prophylaxis- Protonix DVT prophylaxis. Prognosis: Poor given patient's multiple co-morbidities. Rest of plan per hospitalist and other consultants. Thank you, Dr. Brody, for allowing me to participate in this patient's care. Further recommendations will depend on the patient's clinical course. Please do not hesitate to contact me if you have any questions or concerns. This medical document was created using an electronic medical record system with [employer] computerized dictation system. Although these documentations are being carefully reviewed, there may still be some phonetic and typographical changes. The errors are purely typographical, due to imperfection on the software program, and do not reflect any compromise in the patient's medical care. Plan discussed with: Patient, Other (LATIA Madden) ROSE ACOSTA MD Nov 05, 2024 23:48
[2024-11-06] VITALS (7 sets, daily range): BP systolic 117–153; BP diastolic 84–100; PULSE 60–80; RESP 15–19; TEMP 98–99.1; O2SAT 96–100
--- NOTE | 2024-11-06 08:05 | ECG ---
[facility] Test Date: 2024-11-05 Test Time: 04:09:17 Pat Name: LUH RIOS Department: [facility] [place] Room: 0247T Gender: M Hand Edger: coby : 1960 Requested By: ABELARDO CASTANON Order Number: [id number] Reading MD: Measurements Intervals [place] Rate: 69 P: 17 OH: 133 QRS: -24 QRSD: 100 T: -39 QT: 461 QTc: 494 Interpretive Statements Sinus rhythm Ventricular premature complex Inferior infarct, recent Lateral leads are also involved Baseline wander in lead(s) V5 Please click the below link to view image of tracing.
[2024-11-06 10:32] LABS: Basophils # (auto) 0.1 10 ^3/uL (0-0.2); Basophils % (auto) 0.5 % (0.0-2.0); Eosinophils # (auto) 0.1 10 ^3/uL (0-0.8); Eosinophils % (auto) 0.9 % (0.0-7.0); Hematocrit 49.9 % (41.0-53.0); Hemoglobin 16.1 g/dL (13.5-17.5); Lymphocytes # (auto) 1.2 10 ^3/uL (0.4-5.4); Lymphocytes % (auto) 11.8 % (10.0-50.0); Mean Corpuscular Hemoglobin 29.6 pg (28.0-32.0); Mean Corpuscular Hgb Conc. 32.3 g/dL (32.0-36.0); Mean Corpuscular Volume 91.6 fL (80.0-100.0); Monocytes # (auto) 0.9 10 ^3/uL (0-1.3); Neutrophils # (auto) 7.6 10 ^3/uL (1.6-8.6); Neutrophils % (auto) 77.8 % (37.0-80.0); Nucleated Red Blood Cells % 0.1 %; Platelet Count (auto) 242 10^3/uL (140-450); Red Blood Cells 5.45 10^6/uL (4.5-5.90); Red Cell Distribution Width 14.1 % (11.8-14.3); White Blood Cell 9.8 10^3/uL (4.4-10.8)
[2024-11-06 10:50] LABS: Alkaline Phosphatase 113 U/L (46-116); Calcium 9.2 mg/dL (8.7-10.4); Carbon Dioxide 29 mmol/L (20-31); Chloride 104 mmol/L (98-107)
[2024-11-06 10:51] LABS: Anion Gap 7 (5-15); Magnesium 2.3 mg/dL (1.6-2.6); Sodium 140 mmol/L (136-145); Total Protein 6.8 g/dL (5.7-8.2)
[2024-11-06 10:53] LABS: Hepatitis B Surface Antigen Negative (Negative); Hepatitis C Antibody Negative (Negative)
[2024-11-06 10:59] LABS: Alanine Aminotransferase 61 U/L (7-40); Aspartate Aminotransferase 134 U/L (13-40); Bilirubin, Total 1.7 mg/dL (0.2-1.0); Blood Urea Nitrogen 9 mg/dL (9-23); Glucose 126 mg/dL (74-106)
[2024-11-06] MEDS: EMPAGLIFLOZIN 10 MG TAB PO SCH (11:58)
--- NOTE | 2024-11-06 14:06 | DVHPN2 ---
Assessment/Plan Assessment/Plan Progress note 64 yo M with meth use admitted for STEMI, had vfib arrest in the lab, s/p DCCV x8 to ROSC, now off phenylephrine. telemetry with NSVT. no active chest pain at the moment\ seen today during rounds. no active chest pain. K 5, will hold initiation of aldactone today,. Physical exam AOx3 cler breath sounds s1 s2 RRR no murmur abdomen soft nontender trace LE edema Labs EKG imaging reviewed Assessment and plan STEMI s/p PCI DESx1 in RCA vfib reperfussion s/p DCCV acute systolic heart failure HFrEF 30% acute hypoxic respiratory failure hyperlipidemia aortic regurgitation c/w o2 supp maintain spo2 >94 c/w asa plavix lipitor c/w amio drip inititate coreg, jardiance, entresto hold aldactone strict io daily weight diet cardiac dvt ppx lovenox code status full code Plan discussed with: Patient My Orders Orders - JOHNY ROMERO MD Procedure Category Date Status Time Transfer Orders XFER 11/05/24 Transmitted 17:06 Date of Service: Nov 06, 2024 Billing Provider: JOHNY ROMERO MD Common Visit Codes: [id number] INP/OBS CARE(HIGH) JOHNY ROMERO MD Nov 06, 2024 14:06
--- NOTE | 2024-11-06 17:10 | DVHPN2 ---
Consult Progress Note Subjective Other Systems: Patient remains in normal sinus rhythm on compliance monitor. No ectopy captured on events. Objective vital signs Vital Sign Date Time Temp Pulse Resp B/P (MAP) Pulse Ox O2 Delivery O2 Flow Rate FiO2 11/06/24 13:00 98.2 68 18 117/85 (96) 96 98.2 11/06/24 08:10 Nasal Cannula* 3 32 Total Intake and Output 11/05/24 11/05/24 11/06/24 15:00 23:00 07:00 Intake Total 1427.4 ml 678.9 ml 715 ml Output Total 1650 ml 4390 ml Balance 1427.4 ml -971.1 ml -3675 ml medications Current Medications Medications Dose Ordered Sig/Lars Route Start Time Stop Time Status Last Admin Dose Admin Nitroglycerin 0.4 mg Q5MINP PRN SL 11/04/24 15:00 Morphine Sulfate 2 mg Q30M PRN IV 11/04/24 15:00 Ondansetron HCl 4 mg Q4HP PRN IV 11/04/24 14:45 11/05/24 04:21 4 MG Acetaminophen 650 mg Q6HP PRN PO 11/04/24 14:45 Nitroglycerin 0.4 mg Q5MINP PRN SL 11/04/24 14:45 UNV Morphine Sulfate 2 mg Q30M PRN IV 11/04/24 14:45 UNV Enoxaparin Sodium 40 mg DAILY SC 11/05/24 10:00 11/06/24 12:00 40 MG Morphine Sulfate 2 mg Q4HPRN PRN IV 11/04/24 18:00 11/05/24 06:29 2 MG Aspirin 81 mg DAILY PO 11/05/24 10:00 11/06/24 11:58 81 MG Clopidogrel Bisulfate 75 mg DAILY PO 11/05/24 10:00 11/06/24 11:59 75 MG Atorvastatin Calcium 40 mg HS PO 11/04/24 22:00 11/05/24 21:36 40 MG Carvedilol 3.125 mg Q12HR PO 11/05/24 22:00 11/05/24 22:56 3.125 MG Empaglifozin 10 mg DAILY PO 11/06/24 10:00 11/06/24 11:58 10 MG Sacubitril/ Valsartan 1 tab BID PO 11/05/24 22:00 11/06/24 11:59 1 TAB Amiodarone HCl 200 mg Q12HR PO 11/05/24 22:00 11/06/24 11:58 200 MG Examination: GENERAL:Normal, LUNGS:Normal, CVS:Normal, NEURO:Normal laboratory and microbiology Laboratory Tests 11/06/24 09:50 Test 11/06/24 09:50 Range/Units Serum Glucose 126 H 74-106 mg/dL Problem List/Assessment/Plan Problem List/Assessment/Plan Acute inferior wall ST-elevation myocardial infarction s/p PTCA x 1 ANNETTE to RCA Ventricular fibrillation status post direct current cardioversion x 8 Nonsustained ventricular tachycardia Chronic compensated HFrEF, NYHA class III Hypertensive emergency Amphetamine abuse Obesity Plan/recommendations (Dr. Brody): The patient with acute ST-elevation myocardial infarction was taken to the lab aid and underwent a coronary angiogram with left heart catheterization with successful PTCA and stenting of the RCA. While in lab aid, the patient had episodes of ventricular fibrillation that required cardioversion x8. Transthoracic echocardiogram reveals an EF of 35%. Continue guideline directed medical therapy for CHF as tolerated. Add MRA with stable potassium. At this time we will recommend to continue with dual antiplatelet therapy, lipid- lowering agent, and antiarrhythmic agent. Patient educated on the need for medication compliance as well as cessation of amphetamine use. Continue with close cardiac surveillance. Thank you for allowing us to care for this patient. Please call with any questions or concerns. Critical care time spent: 36 minutes. This medical document was created using an electronic medical record system with voice recognition software and computerized dictation system. Although this document has been carefully reviewed, there might still be some phonetic and typographical errors. Occasional wrong-word or ``sound-alike substitutions may have occurred due to the inherent limitations of voice recognition software. These areas are purely typographical due to imperfections of the software programs and do not reflect any compromise in the patient's medical care. Please read the chart carefully and recognize, using context, where these substitutions have occurred. Plan discussed with: Patient Date of Service: Nov 06, 2024 Billing Provider: EDU ARGUETA Common Visit Codes: [id number] INP/OBS CARE(HIGH) EDU ARGUETA Nov 06, 2024 17:10
--- NOTE | 2024-11-06 20:23 | DVHPN2 ---
Progress Note - Dictate Date Seen: Nov 06, 2024 Medical Necessity Reason Pt with a Central, PICC or Fol: No Subjective Patient seen and examined at bedside. Remains on supplemental oxygen Overnight events reviewed. vital signs Vital Sign Date Time Temp Pulse Resp B/P (MAP) Pulse Ox O2 Delivery O2 Flow Rate FiO2 11/06/24 17:00 98.0 60 18 130/84 (99) 98 98.0 11/06/24 08:10 Nasal Cannula* 3 32 Total Intake and Output 11/05/24 11/05/24 11/06/24 15:00 23:00 07:00 Intake Total 1427.4 ml 678.9 ml 715 ml Output Total 1650 ml 4390 ml Balance 1427.4 ml -971.1 ml -3675 ml medications Current Medications Medications Dose Ordered Sig/Lars Route Start Time Stop Time Status Last Admin Dose Admin Nitroglycerin 0.4 mg Q5MINP PRN SL 11/04/24 15:00 Morphine Sulfate 2 mg Q30M PRN IV 11/04/24 15:00 Ondansetron HCl 4 mg Q4HP PRN IV 11/04/24 14:45 11/05/24 04:21 4 MG Acetaminophen 650 mg Q6HP PRN PO 11/04/24 14:45 Nitroglycerin 0.4 mg Q5MINP PRN SL 11/04/24 14:45 UNV Morphine Sulfate 2 mg Q30M PRN IV 11/04/24 14:45 UNV Enoxaparin Sodium 40 mg DAILY SC 11/05/24 10:00 11/06/24 12:00 40 MG Morphine Sulfate 2 mg Q4HPRN PRN IV 11/04/24 18:00 11/05/24 06:29 2 MG Aspirin 81 mg DAILY PO 11/05/24 10:00 11/06/24 11:58 81 MG Clopidogrel Bisulfate 75 mg DAILY PO 11/05/24 10:00 11/06/24 11:59 75 MG Atorvastatin Calcium 40 mg HS PO 11/04/24 22:00 11/05/24 21:36 40 MG Carvedilol 3.125 mg Q12HR PO 11/05/24 22:00 11/05/24 22:56 3.125 MG Empaglifozin 10 mg DAILY PO 11/06/24 10:00 11/06/24 11:58 10 MG Sacubitril/ Valsartan 1 tab BID PO 11/05/24 22:00 11/06/24 11:59 1 TAB Amiodarone HCl 200 mg Q12HR PO 11/05/24 22:00 11/06/24 11:58 200 MG objective Gen.: Patient lying in bed in no apparent distress. On supplemental oxygen. Head: Normocephalic, atraumatic. Eyes: EOMI/PERRLA. Ears: Normal hearing. Normal anatomy. Neck/trachea: Trachea midline, supple. Nose: Normal external anatomy. Mouth: Moist mucous membranes. Chest: Decreased air entry bilaterally. No wheezing or rhonchi. Cardiovascular: Positive S1, positive S2. Regular rate and rhythm. Abdomen: Positive bowel sounds in all 4 quadrants. Soft, non-tender, non- distended. : Deferred. Rectal: Deferred. Skin: Warm, dry. Intact. Extremities: 2+ radial pulses bilaterally. No lower extremity edema. Neuro: Awake, alert, oriented x3. No gross motor or sensory deficits. Cranial nerves II through XII intact. Gait not assessed. laboratory and microbiology Laboratory Tests 11/06/24 09:50 Test 11/06/24 09:50 Range/Units Serum Glucose 126 H 74-106 mg/dL Assessment/Plan Impression: Acute hypoxic respiratory failure Dependence on supplemental oxygen Cardiac arrest, s/p ROSC Methamphetamine abuse Ventricular tachycardia Obesity, BMI 30.8 Events: Remains on supplemental oxygen, 3 LPM NC Taper O2 as tolerated Off pressors, hemodynamically stable. Obtain CXR in the AM to assess for interval changes. Continue amiodarone PO. On carvedilol Statin, Plavix Entresto Cardiology recommendations appreciated. Incentive spirometry Pain control Avoid oversedation DVT prophylaxis Labs and imaging reviewed. Rest of plan as noted below. Plan: Supplemental oxygen Titrate to keep O2 sats above 92%. S/p cardiac arrest w/ ROSC S/p cardiac catheterization, PTCA and stenting of the RCA Cardiology recs appreciated. On Plavix, aspirin Amiodarone PO. Pain control Avoid oversedation Monitor renal function. Monitor electrolytes. Supplement as necessary. Monitor ins and outs. GI prophylaxis- Protonix DVT prophylaxis. Prognosis: Poor given patient's multiple co-morbidities. Rest of plan per hospitalist and other consultants. Thank you, Dr. Brody, for allowing me to participate in this patient's care. Further recommendations will depend on the patient's clinical course. Please do not hesitate to contact me if you have any questions or concerns. This medical document was created using an electronic medical record system with [employer] dictation system. Although these documentations are being carefully reviewed, there may still be some phonetic and typographical changes. The errors are purely typographical, due to imperfection on the software program, and do not reflect any compromise in the patient's medical care. Plan discussed with: Patient, Other (RN) ROSE ACOSTA MD Nov 06, 2024 20:23
[2024-11-07 01:00] VITALS: BP 138/88; PULSE 63; RESP 19; TEMP 97.8; O2SAT 95
[2024-11-07 05:00] VITALS: BP 125/88; PULSE 63; RESP 19; TEMP 97.7; O2SAT 99
[2024-11-07 07:15] LABS: Calcium 9.3 mg/dL (8.7-10.4); Chloride 100 mmol/L (98-107); Potassium 4.3 mmol/L (3.5-5.1); Sodium 139 mmol/L (136-145)
[2024-11-07 07:16] LABS: Anion Gap 9 (5-15); Carbon Dioxide 30 mmol/L (20-31)
[2024-11-07 07:21] LABS: BUN/Creatinine Ratio 18.8 (10.0-20.0); Blood Urea Nitrogen 15 mg/dL (9-23); Glucose 96 mg/dL (74-106)
[2024-11-07] MEDS ORDERED: CLOP75TA70 PO (08:48)
[2024-11-07] MEDS ORDERED: ATOR40TA52 PO (08:48)
[2024-11-07] MEDS ORDERED: ASPI-325 PO (08:48)
[2024-11-07] MEDS ORDERED: AMIO200T13 PO (08:48)
[2024-11-07] MEDS ORDERED: SACU1TAB PO (08:48)
[2024-11-07] MEDS ORDERED: CARV-214 PO (08:48)
[2024-11-07] MEDS ORDERED: EMPA1TAB PO (08:48)
--- NOTE | 2024-11-07 08:48 | DVH ---
CHEST RADIOGRAPH Indication: interval changes, remains on o2 Technique: Single frontal view of the chest was obtained Comparison: XY CHEST PORTABLE on DOS: 11/04/24, CHEST PORTABLE on DOS: 08/02/21 FINDINGS: Lines and Tubes: None Lungs: No focal consolidation. Pleura: No effusion. No pneumothorax. Cardiomediastinal contours: Unremarkable Bones: No acute osseous abnormality. IMPRESSION: No acute cardiopulmonary disease.
--- NOTE | 2024-11-07 08:52 | DVHDS2 ---
Discharge Summary Date of Admission Nov 04, 2024 at 14:41 Date of Discharge: Nov 07, 2024 Labs/Diagnostic Data: Laboratory Results Test 11/07/24 06:33 11/06/24 09:50 11/05/24 00:25 11/04/24 20:47 Sodium Level 139 mmol/L (136-145) Potassium Level 4.3 mmol/L (3.5-5.1) Chloride Level 100 mmol/L (98-107) Carbon Dioxide Level 30 mmol/L (20-31) Anion Gap 9 (5-15) Blood Urea Nitrogen 15 mg/dL (9-23) Creatinine 0.80 mg/dL (0.700-1.30) Glomerular Filtration Rate Calc 99 mL/min (>90) BUN/Creatinine Ratio 18.8 (10.0-20.0) Serum Glucose 96 mg/dL (74-106) Calcium Level 9.3 mg/dL (8.7-10.4) White Blood Count 9.8 10^3/uL (4.4-10.8) Red Blood Count 5.45 10^6/uL (4.5-5.90) Hemoglobin 16.1 g/dL (13.5-17.5) Hematocrit 49.9 % (41.0-53.0) Mean Corpuscular Volume 91.6 fL (80.0-100.0) Mean Corpuscular Hemoglobin 29.6 pg (28.0-32.0) Mean Corpuscular Hemoglobin Concent 32.3 g/dL (32.0-36.0) Red Cell Distribution Width 14.1 % (11.8-14.3) Platelet Count 242 10^3/uL (140-450) Mean Platelet Volume 8.3 fL (6.9-10.8) Neutrophils (%) (Auto) 77.8 % (37.0-80.0) Lymphocytes (%) (Auto) 11.8 % (10.0-50.0) Monocytes (%) (Auto) 9.0 % (0.0-12.0) Eosinophils (%) (Auto) 0.9 % (0.0-7.0) Basophils (%) (Auto) 0.5 % (0.0-2.0) Neutrophils # (Auto) 7.6 10 ^3/uL (1.6-8.6) Lymphocytes # (Auto) 1.2 10 ^3/uL (0.4-5.4) Monocytes # (Auto) 0.9 10 ^3/uL (0-1.3) Eosinophils # (Auto) 0.1 10 ^3/uL (0-0.8) Basophils # (Auto) 0.1 10 ^3/uL (0-0.2) Nucleated Red Blood Cells 0.1 % Phosphorus Level 3.0 mg/dL (2.4-5.1) Magnesium Level 2.3 mg/dL (1.6-2.6) Total Bilirubin 1.7 mg/dL (0.2-1.0) Aspartate Amino Transferase (AST) 134 U/L (13-40) Alanine Aminotransferase (ALT) 61 U/L (7-40) Alkaline Phosphatase 113 U/L (46-116) Total Protein 6.8 g/dL (5.7-8.2) Albumin 4.0 g/dL (3.2-4.8) Urine Color Yellow (Yellow) Urine Clarity Clear (Clear) Urine pH 5.5 (5.0-9.0) Urine Specific [place] 1.030 (1.001-1.035) Urine Protein 1+ (Negative) Urine Ketones 1+ (Negative) Urine Blood Negative /uL (Negative) Urine Nitrite Negative (Negative) Urine Bilirubin Negative (Negative) Urine Urobilinogen Normal mg/dL (Negative) Urine Leukocyte Esterase Negative /uL (Negative) Urine RBC 1 /hpf (0 - 3) Urine Microscopic WBC < 1 /HPF (0-3) Urine Squamous Epithelial Cells None seen /hpf (<5) Urine Bacteria None seen /hpf (None Seen) Urine Hyaline Casts Few /lpf (0 - 2) Urine Mucus Few (None Seen) Urine Glucose Normal mg/dL (Normal) Urine Opiates Screen Pos (NEGATIVE) Urine Fentanyl Screen Pos (NEGATIVE) Urine Barbiturates Screen Neg (NEGATIVE) Urine Phencyclidine Screen Neg (NEGATIVE) Urine Amphetamines Screen Pos (NEGATIVE) Urine Benzodiazepines Screen Pos (NEGATIVE) Urine Cocaine Screen Neg (NEGATIVE) Urine Cannabinoids Screen Neg (NEGATIVE) Troponin I High Sensitivity > 58737 ng/L (</=54) Test 11/04/24 14:24 11/04/24 13:03 Blood Gas Specimen Type Arterial Blood Gas Sample Site Arterial line Blood Gas Patient Temperature 37.0 Arterial Blood Date Drawn [id number] Arterial Blood pH 7.332 (7.350-7.450) Arterial Blood Partial Pressure CO2 39.2 mmHg (35.0-48.0) Arterial Blood Partial Pressure O2 62.6 mmHg (83.0-108.0) Arterial Blood HCO3 20.3 mmol/L (21.0-28.0) Arterial Blood Oxygen Saturation 90.6 % (94.0-98.0) Arterial Blood Base Excess -5.1 mmol/L (-2.0-3.0) Arterial Blood Oxyhemoglobin 89.2 % (94.0-98.0) Arterial Blood Carboxyhemoglobin 1.2 % (0.5-1.5) Arterial Blood Methemoglobin 0.3 % (0.0-1.5) [place] Test N/a Blood Gas Total Hemoglobin 14.50 g/dL (13.5-17.5) Blood Gas Liter Flow 3.00 Blood Gas Modality Nasal cannula Blood Gas Spontaneous Rate 20 FiO2 % 32.0 Prothrombin Time 11.7 sec (9.3-11.8) Prothrombin Time INR 1.12 (0.9-1.15) Activated Partial Thromboplast Time 29.6 SEC (24.5-34.5) Hemoglobin A1c 5.3 % A1C (<5.7) Lactic Acid Level 1.3 mmol/L (0.4-2.0) B-Type Natriuretic Peptide 28.78 pg/mL (0-100) Triglycerides Level 91 mg/dL (< 150) Cholesterol Level 170 mg/dL (< 200) LDL Cholesterol 122 mg/dL (< 100) HDL Cholesterol 39 mg/dL (40-59) Lipase 65 U/L (12-53) Thyroid Stimulating Hormone (TSH) 2.26 uIU/mL (0.55-4.78) Hepatitis B Surface Antigen Negative (Negative) Hepatitis C Antibody Negative (Negative) Other Laboratory Tests 11/07/24 06:33 11/06/24 09:50 Brief Hx & Hospital Course: 64 yo M with meth use admitted for STEMI, had vfib arrest in the lab, s/p DCCV x8 to ROSC, now off phenylephrine. telemetry with NSVT. no active chest pain after intervention. Switched to oral amiodarone, initiated with GDMT as LVEF was reduced. no ectopy on telemetry, stable to discharge home. continue with DAPT, amio, GDMT. Aldactone deferred as patient had one episode of hyperkalemia, to be initiated as outpatient. DC clinic follow up in 2 weeks for that and uptitration of GDMT. Condition at Discharge: Good Final Diagnosis/Problems List STEMI s/p PCI DESx1 in RCA vfib reperfussion s/p DCCV acute systolic heart failure HFrEF 30% acute hypoxic respiratory failure hyperlipidemia aortic regurgitation Discharge Disposition: Home Discharge Instruct/Medications Diet: Cardiac 2g Na,low cholest Activity: No Restrictions, As Tolerated Follow Up/Referral: Cardiology DC clinic PCP Medications: asa plavix amio coreg jardiance entresto lipitor 39 Discharge Statement: "Patient was advised to return to the ER or call 911 if any headaches, dizziness, shortness of breath, chest pain, abdominal pain, bleeding, fevers, or worsening of medical condition. Patient was counseled about treatment plan, medications, possible side effects, patientverbalized understanding. All questions were answered to the best of my ability. This discharge took greater then 30 minutes in planning, reviewing documentation, counseling the patient, and discussing with other team members." ASSESSMENT ASSESSMENT Assessment STEMI s/p PCI DESx1 in RCA vfib reperfussion s/p DCCV acute systolic heart failure HFrEF 30% acute hypoxic respiratory failure hyperlipidemia aortic regurgitation Date of Service: Nov 07, 2024 Billing Provider: JOHNY ROMERO MD Common Visit Codes: 17264-FLS/OBS DISCH DAY >30min JOHNY ROMERO MD Nov 07, 2024 08:52
[2024-11-07 09:00] VITALS: BP 126/80; PULSE 69; RESP 17; TEMP 98; O2SAT 97
--- NOTE | 2024-11-07 09:59 | DVHPN2 ---
Consult Progress Note Subjective Other Systems: The patient remains in normal sinus rhythm on compliance monitor. A nonsustained, 5 beat run of V-tach noted on compliance monitor overnight. Patient denies any cardiac symptoms Objective vital signs Vital Sign Date Time Temp Pulse Resp B/P (MAP) Pulse Ox O2 Delivery O2 Flow Rate FiO2 11/07/24 05:00 97.7 63 19 125/88 (100) 99 97.7 11/06/24 20:00 Nasal Cannula* 3 32 Total Intake and Output 11/06/24 11/06/24 11/07/24 15:00 23:00 07:00 Intake Total 712 ml 450 ml Output Total 900 ml 900 ml Balance -188 ml -450 ml medications Current Medications Medications Dose Ordered Sig/Lars Route Start Time Stop Time Status Last Admin Dose Admin Nitroglycerin 0.4 mg Q5MINP PRN SL 11/04/24 15:00 Morphine Sulfate 2 mg Q30M PRN IV 11/04/24 15:00 Ondansetron HCl 4 mg Q4HP PRN IV 11/04/24 14:45 11/05/24 04:21 4 MG Acetaminophen 650 mg Q6HP PRN PO 11/04/24 14:45 Nitroglycerin 0.4 mg Q5MINP PRN SL 11/04/24 14:45 UNV Morphine Sulfate 2 mg Q30M PRN IV 11/04/24 14:45 UNV Enoxaparin Sodium 40 mg DAILY SC 11/05/24 10:00 11/06/24 12:00 40 MG Morphine Sulfate 2 mg Q4HPRN PRN IV 11/04/24 18:00 11/05/24 06:29 2 MG Aspirin 81 mg DAILY PO 11/05/24 10:00 11/06/24 11:58 81 MG Clopidogrel Bisulfate 75 mg DAILY PO 11/05/24 10:00 11/06/24 11:59 75 MG Atorvastatin Calcium 40 mg HS PO 11/04/24 22:00 11/06/24 22:22 40 MG Carvedilol 3.125 mg Q12HR PO 11/05/24 22:00 11/06/24 22:24 3.125 MG Empaglifozin 10 mg DAILY PO 11/06/24 10:00 11/06/24 11:58 10 MG Sacubitril/ Valsartan 1 tab BID PO 11/05/24 22:00 11/06/24 22:22 1 TAB Amiodarone HCl 200 mg Q12HR PO 11/05/24 22:00 11/06/24 22:23 200 MG Examination: GENERAL:Normal, LUNGS:Normal, CVS:Normal, NEURO:Normal laboratory and microbiology Laboratory Tests 11/07/24 06:33 11/06/24 09:50 Test 11/07/24 06:33 Range/Units Serum Glucose 96 74-106 mg/dL Problem List/Assessment/Plan Problem List/Assessment/Plan Acute inferior wall ST-elevation myocardial infarction s/p PTCA x 1 ANNETTE to RCA Ventricular fibrillation status post direct current cardioversion x 8 Nonsustained ventricular tachycardia Chronic compensated HFrEF, NYHA class III Hypertensive emergency, resolved Amphetamine abuse Obesity Plan/recommendations (Dr. Brody): Case discussed with . The patient with acute ST-elevation myocardial infarction was taken to the [facility] and underwent a coronary angiogram with left heart catheterization with successful PTCA and stenting of the RCA. While in [employer] [employer] [facility], the patient had episodes of ventricular fibrillation that required cardioversion x8. Transthoracic echocardiogram reveals an EF of 35%. Continue guideline directed medical therapy for CHF as tolerated. Add MRA with stable potassium. At this time we will recommend to continue with dual antiplatelet therapy, lipid-lowering agent, and antiarrhythmic agent. Patient educated on the need for medication compliance as well as cessation of amphetamine use. Continue with close cardiac surveillance. There is no further inpatient cardiac workup indicated at this time. The patient was educated that he needs to establish a optical instrument repairer in the outpatient setting. Ideally, the patient should follow up with Cardiology within 1-2 weeks post discharge. Thank you for allowing us to care for this patient. Please call with any questions or concerns. Critical care time spent: 36 minutes. This medical document was created using an electronic medical record system with voice recognition software and computerized dictation system. Although this document has been carefully reviewed, there might still be some phonetic and typographical errors. Occasional wrong-word or ``sound-alike substitutions may have occurred due to the inherent limitations of voice recognition software. These areas are purely typographical due to imperfections of the software programs and do not reflect any compromise in the patient's medical care. Please read the chart carefully and recognize, using context, where these substitutions have occurred. Plan discussed with: Patient Date of Service: Nov 07, 2024 Billing Provider: EDU ARGUETA Common Visit Codes: [id number] INP/OBS CARE(HIGH) EDU ARGUETA Nov 07, 2024 09:59
[2024-11-07] MEDS ORDERED: VALS40TA2 PO (10:41)
[2024-11-07 11:58] VITALS: PULSE 67
[2024-11-07 12:06] VITALS: BP 126/80; PULSE 69; TEMP 36.7
--- NOTE | 2024-11-07 23:03 | DVHPN2 ---
Progress Note - Dictate Date Seen: Nov 07, 2024 Medical Necessity Reason Pt with a Central, PICC or Fol: No Subjective Patient seen and examined at bedside. Remains on supplemental oxygen Overnight events reviewed. vital signs Vital Sign Date Time Temp Pulse Resp B/P (MAP) Pulse Ox O2 Delivery O2 Flow Rate FiO2 11/07/24 12:06 36.7 69 11/07/24 11:17 113/75 11/07/24 09:00 17 97 11/07/24 08:10 Nasal Cannula* 3 32 Total Intake and Output 11/06/24 11/06/24 11/07/24 15:00 23:00 07:00 Intake Total 712 ml 450 ml Output Total 900 ml 900 ml Balance -188 ml -450 ml medications Current Medications Medications Dose Ordered Sig/Lars Route Start Time Stop Time Status Last Admin Dose Admin Nitroglycerin 0.4 mg Q5MINP PRN SL 11/04/24 14:45 UNV Morphine Sulfate 2 mg Q30M PRN IV 11/04/24 14:45 UNV objective Gen.: Patient lying in bed in no apparent distress. On supplemental oxygen. Head: Normocephalic, atraumatic. Eyes: EOMI/PERRLA. Ears: Normal hearing. Normal anatomy. Neck/trachea: Trachea midline, supple. Nose: Normal external anatomy. Mouth: Moist mucous membranes. Chest: Decreased air entry bilaterally. No wheezing or rhonchi. Cardiovascular: Positive S1, positive S2. Regular rate and rhythm. Abdomen: Positive bowel sounds in all 4 quadrants. Soft, non-tender, non- distended. : Deferred. Rectal: Deferred. Skin: Warm, dry. Intact. Extremities: 2+ radial pulses bilaterally. No lower extremity edema. Neuro: Awake, alert, oriented x3. No gross motor or sensory deficits. Cranial nerves II through XII intact. Gait not assessed. laboratory and microbiology Laboratory Tests 11/07/24 06:33 11/06/24 09:50 Test 11/07/24 06:33 Range/Units Serum Glucose 96 74-106 mg/dL Assessment/Plan Impression: Acute hypoxic respiratory failure Dependence on supplemental oxygen Cardiac arrest, s/p ROSC Methamphetamine abuse Ventricular tachycardia Obesity, BMI 30.8 Events: Remains on supplemental oxygen, 3 LPM NC Taper O2 as tolerated CXR demonstrates no acute intrathoracic abnormalities. Continue amiodarone PO. On carvedilol Plavix Entresto Cardiology recommendations appreciated. Incentive spirometry Patient is stable for discharge from the pulmonary standpoint. Disposition per hospitalist. DVT prophylaxis Labs and imaging reviewed. Rest of plan as noted below. Plan: Supplemental oxygen Titrate to keep O2 sats above 92%. S/p cardiac arrest w/ ROSC S/p cardiac catheterization, PTCA and stenting of the RCA Cardiology recs appreciated. On Plavix, aspirin Amiodarone PO. Pain control Avoid oversedation Monitor renal function. Monitor electrolytes. Supplement as necessary. Monitor ins and outs. GI prophylaxis- Protonix DVT prophylaxis. Prognosis: Poor given patient's multiple co-morbidities. Rest of plan per hospitalist and other consultants. Thank you, Dr. Brody, for allowing me to participate in this patient's care. Further recommendations will depend on the patient's clinical course. Please do not hesitate to contact me if you have any questions or concerns. This medical document was created using an electronic medical record system with [employer] dictation system. Although these documentations are being carefully reviewed, there may still be some phonetic and typographical changes. The errors are purely typographical, due to imperfection on the software program, and do not reflect any compromise in the patient's medical care. Plan discussed with: Patient, Other (RN) ROSE ACOSTA MD Nov 07, 2024 23:03
== END 2024-11-07 14:00 | disposition home or self-care (01) | DRG 174 ==
LOC: ER 12:54 → OVERFLOW 14:41 → ICU WEST 15:17 → TELE-EAST 11-05 23:57
PROVIDERS: ADMIT Student in an Organized Health Care Education/Training Program; ATTEND Student in an Organized Health Care Education/Training Program
PROC: 027034Z Dilation of Coronary Artery, One Artery with Drug-eluting Intraluminal Device, Percutaneous Approach (ICD-10-PCS; principal; 2024-11-04)
PROC: B211YZZ Fluoroscopy of Multiple Coronary Arteries using Other Contrast (ICD-10-PCS; 2024-11-04)
PROC: B215YZZ Fluoroscopy of Left Heart using Other Contrast (ICD-10-PCS; 2024-11-04)
PROC: 4A023N7 Measurement of Cardiac Sampling and Pressure, Left Heart, Percutaneous Approach (ICD-10-PCS; 2024-11-04)
PROC: 5A2204Z Restoration of Cardiac Rhythm, Single (ICD-10-PCS; 2024-11-04)
PROC: 5A12012 Performance of Cardiac Output, Single, Manual (ICD-10-PCS; 2024-11-04)
DX: I21.19 ST elevation (STEMI) myocardial infarction involving other coronary artery of inferior wall (principal); I46.9 Cardiac arrest, cause unspecified; J96.01 Acute respiratory failure with hypoxia; E66.9 Obesity, unspecified; I16.1 Hypertensive emergency; I42.9 Cardiomyopathy, unspecified; I47.20 Ventricular tachycardia, unspecified; E78.5 Hyperlipidemia, unspecified; I35.1 Nonrheumatic aortic (valve) insufficiency; E87.5 Hyperkalemia; I49.01 Ventricular fibrillation; F15.10 Other stimulant abuse, uncomplicated; I11.0 Hypertensive heart disease with heart failure; M54.30 Sciatica, unspecified side; I50.21 Acute systolic (congestive) heart failure; Z68.30 Body mass index [BMI] 30.0-30.9, adult; Z79.1 Long term (current) use of non-steroidal anti-inflammatories (NSAID); Z79.899 Other long term (current) drug therapy; Z79.2 Long term (current) use of antibiotics; Z99.81 Dependence on supplemental oxygen
CPT/HCPCS: 36415; 36600; 71045; 74176; 80048; 80053; 80061; 80307; 81001; 82805; 83036; 83605; 83690; 83735; 83880; 84100; 84443; 84484; 85025; 85610; 85730; 86803; 87081; 87340; 92941; 92960; 93005; 93306; 93458; 96374; 96375; 99152; 99291; C1887; G0378; J2250; J2405; J2470; Q9967

== ENCOUNTER 2025-01-30 22:17 | Emergency (ER) | payer MEDICAID ==
[~2025-01-30] VITALS: Ht 177.8 cm; Wt 93.1 kg
[~2025-01-30 22:17] MED LIST changes: -ACE3T PO; +AMIO200T13 PO; +ASPI-325 PO; +ATOR40TA52 PO; +CARV-214 PO; +CLOP75TA70 PO; +EMPA1TAB PO; -GENT0.3S10 OP; -POLYSOL28 OP; +VALS40TA2 PO
[2025-01-31] MEDS ORDERED: CARB6.5S59 OT (00:41)
[2025-01-31] MEDS ORDERED: AMOX875T4 PO (00:41)
--- NOTE | 2025-01-31 00:42 | ED.PDOC ---
Eye-HPI HPI Comments 65-year-old male presents to ER with complaints of left-sided earache pain x2 days. Patient reports that he has been experiencing intermittent pain and intermittent ringing in left ear due to "ear wax build up" x 2 days. Denies any current left-sided earache pain/overall pain. Patient presents to ER ambulatory on arrival, with steady gait, in no distress. Denies skin changes, ear drainage, insect in left ear, nausea/vomiting, headache, vertigo, vision changes or any further symptoms/complaints Chief Complaint: Foreign Body Time Seen by MD: 23:42 Primary Care Provider: JAGUAR Reviewed Notes: Nurses Notes, Medications, Allergies Allergies: Coded Allergies: NO KNOWN ALLERGIES (Unverified , 01/21/16) Home Meds Active Scripts Carbamide Peroxide (Ear Drops Earwax Removal) 6.5 % Shikha, 5 DROP OT BID for 4 Days, #1 BOTTLE 0 Refills Prov:CIRILO LACEY 01/31/25 Amoxicillin & Pot Clavulanate (Amoxicillin/Potassium Cla) 875 Mg Tab, 1 TAB PO BID for 7 Days, #14 TAB 0 Refills Prov:CIRILO LACEY 01/31/25 Valsartan (Diovan) 40 Mg Tab, 1 TAB PO DAILY for 30 Days, #30 TAB 0 Refills Prov:JOHNY ROMERO MD 11/07/24 Amiodarone HCl (Amiodarone HCl) 200 Mg Tab, 200 MG PO Q12HR for 90 Days, #180 TAB 1 Refill Prov:JOHNY ROMERO MD 11/07/24 Aspirin (Aspirin Low Dose) 81 Mg Tab, 81 MG PO DAILY for 90 Days, #90 TAB 1 Refill Prov:JOHNY ROMERO MD 11/07/24 Atorvastatin Calcium (ATORVASTATIN CALCIUM) 40 Mg Tab, 1 TAB PO DAILY, #90 TAB 1 Refill Prov:JOHNY ROMERO MD 11/07/24 Clopidogrel Bisulfate (CLOPIDOGREL) 75 Mg Tab, 75 MG PO DAILY for 90 Days, #90 TAB 1 Refill Prov:JOHNY ROMERO MD 11/07/24 Empagliflozin (Jardiance) 10 Mg Tab, 10 MG PO DAILY for 90 Days, #90 TAB 1 Refill Prov:JOHNY ROMERO MD 11/07/24 Carvedilol (COREG) 3.125 Mg Tab, 3.125 MG PO Q12HR for 30 Days, #60 TAB Prov:JOHNY ROMERO MD 11/07/24 Cyclobenzaprine Hcl (Cyclobenzaprine Hcl) 5 Mg Tab, 1 TAB PO QHSP, #14 TAB 0 Refills Prov:CIRILO LACEY 01/18/24 Information Source: Patient Mode of Arrival: Ambulatory Past Medical History PAST MEDICAL HISTORY: [place] Surgical History: PTCA Family History Family History: Unknown Social History Smoker: Non-Smoker Alcohol: Rarely Drugs: Denies Drug Use Lives In: Home Constitutional: denies: chills, diaphoresis, fatigue, fever, malaise, sweats, weakness, others EENTM: reports: others (As stated in HPI) Respiratory: denies: cough, hemoptysis, orthopnea, SOB at rest, shortness of breath, SOB with excertion, stridor, wheezing, others Cardiovascular: denies: chest pain, dizzy spells, diaphoresis, Dyspnea on exertion, edema, irregular heart beat, left arm pain, lightheadedness, palpitations, PND, syncope, others Gastrointestinal: denies: abdomen distended, abdominal pain, blood streaked bowels, constipated, diarrhea, dysphagia, difficulty swallowing, hematemesis, melena, nausea, poor appetite, poor fluid intake, rectal bleeding, rectal pain, vomiting, others Genitourinary: denies: burning, dysuria, flank pain, frequency, hematuria, incontinence, penile discharge, penile sore, pain, testicle pain, testicle swelling, urgency, others Neurological: denies: dizziness, fainting, headache, left sided numbness, left sided weakness, numbness, paresthesia, pre-existing deficit, right sided numbness, right sided weakness, seizure, speech problems, tingling, tremors, weakness, others Musculoskeletal: denies: back pain, gout, joint pain, joint swelling, muscle pain, muscle stiffness, neck pain, others Integumetry: denies: bruises, change in color, change in hair/nails, dryness, laceration, lesions, lumps, rash, wounds, others Allergic/Immunocompromised: denies: Difficulty Healing, Frequent Infections, Hives, Itching, others Hematologic/Lymphatic: denies: anemia, blood clots, easy bleeding, easy bruising, swollen glands, others Endocrine: denies: excessive hunger, excessive sweating, excessive thirst, excessive urination, flushing, intolerance to cold, intolerance to heat, unexplained weight gain, unexplained weight loss, others Psychiatric: denies: anxiety, bipolar disorder, depression, hopeless, panic disorder, schizophrenia, sleepless, suicidal, others Physical Exam General Appearance: No Apparent Distress HEENT: Normal ENT Inspection, PERRL/EOMI, Pharynx Normal, Other (Cerumen impaction with surrounding erythema noted in left middle ear canal, unable to visualize left TM due to cerumen impaction, no bleeding/drainage noted, no TTP to left mastoid process noted, no skin changes to left ear appreciated. Ear exam on right-unremarkable) Neck: Full Range of Motion, Non-Tender, Normal Respiratory: Chest Non-Tender, Lungs Clear, No Accessory Muscle Use, No Respiratory Distress, Normal Breath Sounds Cardiovascular: No Murmur, No Gallop, Regular Rate/Rhythm Breast Exam: Deferred Gastrointestinal: NOT DONE Genitalia: Deferred Pelvic: Deferred Rectal: Deferred Extremities: Normal capillary refill, Normal range of motion Neurologic: Alert, shop fitter II-XII nml as Tested, No Motor Deficits, Normal Affect, Normal Mood, No Sensory Deficits Cerebellar Function: Normal Reflexes: Normal Skin: Dry, Normal Color, Warm Lymphatic: No Adenopathy Was a procedure done? Was a procedure done?: No Sedation Sedation?: No EENT DIFF Eye: N/A Ear: Abrasion, Foreign Body, Otitis Externa, Perforation X-Ray, Labs, Meds, VS Vital Signs Date Time Temp Pulse Resp B/P (MAP) Pulse Ox O2 Delivery O2 Flow Rate FiO2 01/30/25 23:35 98.0 82 20 157/116 (130) 94 98.0 Advised to follow up with PCP in 1-2 days Patient verbalized understanding and agreeable with current plan of care Advised to return to ER immediately if symptoms worsen Time of 1ST Reevaluation: 00:12 Reevaluation 1ST: N/A Patient Education/Counseling: Diagnosis, Treatment, Prognosis, Need For Follow Up Family Education/Counseling: No Family Present SEPSIS Sepsis Screen Date sepsis recognized/suspect: Jan 30, 2025 Time Sepsis recognized/suspect: 2326 Recent Procedure: No On Antibiotic Therapy: No Respiratory Rate >20: No Heart Rate >90: No Temp<36 C (96.8 F) or >38.3 C: No SBP <90 or MAP <65 mmHG: No New Acute Mental Status Change: No Is the patient on CPAP, BIPAP,: No Orders/Vitals/Labs Vital Signs Date Time Temp Pulse Resp B/P (MAP) Pulse Ox O2 Delivery O2 Flow Rate FiO2 01/30/25 23:35 98.0 82 20 157/116 (130) 94 98.0 Departure 1 Departure Time of Disposition: 00:32 Impression: Primary Impression: Otitis media of left ear Qualified Codes: H66.92 - Otitis media, unspecified, left ear Additional Impression: Impacted cerumen of left ear Disposition: HOME / SELF CARE / HOMELESS Condition: Stable e-Prescriptions Carbamide Peroxide (Ear Drops Earwax Removal) 6.5 % Shikha 5 DROP OT BID for 4 Days, #1 BOTTLE 0 Refills Prov: CIRILO LACEY 01/31/25 Amoxicillin & Pot Clavulanate (Amoxicillin/Potassium Cla) 875 Mg Tab 1 TAB PO BID for 7 Days, #14 TAB 0 Refills Prov: CIRILO LACEY 01/31/25 Discharged With: Self Critical Care Note Critical Care Time?: No Stability Stability form required: No Heart Score Heart Score: Heart Score Response (Comments) Value History N/A 0 EKG N/A 0 Age N/A 0 Risk Factors N/A 0 Troponin N/A 0 Total 0 CIRILO LACEY Jan 31, 2025 00:42
[2025-01-31 00:52] VITALS: BP 148/100; PULSE 82; RESP 20; TEMP 98; O2SAT 94
== END 2025-01-31 00:55 | disposition home or self-care (01) ==
LOC: ER 22:17
DX: H66.92 Otitis media, unspecified, left ear (principal); H61.22 Impacted cerumen, left ear; F10.90 Alcohol use, unspecified, uncomplicated; I25.2 Old myocardial infarction; Z79.899 Other long term (current) drug therapy; Z79.84 Long term (current) use of oral hypoglycemic drugs; Z79.82 Long term (current) use of aspirin; Z79.02 Long term (current) use of antithrombotics/antiplatelets; Y90.9 Presence of alcohol in blood, level not specified

== ENCOUNTER 2025-02-12 13:50 | Emergency (ER) | payer MEDICAID ==
[~2025-02-12] VITALS: Ht 175.3 cm; Wt 89.1 kg
[~2025-02-12 13:50] MED LIST changes: +AMOX875T4 PO; +CARB6.5S59 OT
--- NOTE | 2025-02-12 16:01 | ED.PDOC ---
Eye-HPI HPI Comments 65-year-old male presents to the ER with a chief complaint of left ear problems. Patient states that he was seen here 4 days ago for ear wax build up. Patient bought an at-home kit to remove wax when he accidentally injured his ear canal and since then has had tenderness and mild bloody drainage. Denies blunt trauma (hand blow to the ear, fall, direct hit) Denies penetrating trauma (Q-tip use, match-stick, gunshot wound, welding spark) Denies ear trauma Denies barotrauma Denies blast injury Denies air travel Denies scuba diving Denies hearing loss Denies persistent ringing in the ear Denies fever chills night sweats unintentional weight loss Denies nausea vomiting severe headache or recent vision changes Chief Complaint: Earache Time Seen by MD: 14:56 Primary Care Provider: KHARI Reviewed Notes: Nurses Notes, Medications, Allergies Allergies: Coded Allergies: NO KNOWN ALLERGIES (Unverified , 01/21/16) Home Meds Active Scripts Ciprofloxacin-Dexamethasone (Ciprofloxacin/Dexamethaso 0.3-0.1 %) 1 Marleny Marleny, 4 DROP OT BID for 7 Days, #5 ML 0 Refills Prov:LUCIA SOTO NP 02/12/25 Carbamide Peroxide (Ear Drops Earwax Removal) 6.5 % Shikha, 5 DROP OT BID for 4 Days, #1 BOTTLE 0 Refills Prov:CIRILO LACEY 01/31/25 Amoxicillin & Pot Clavulanate (Amoxicillin/Potassium Cla) 875 Mg Tab, 1 TAB PO BID for 7 Days, #14 TAB 0 Refills Prov:CIRILO LACEY 01/31/25 Valsartan (Diovan) 40 Mg Tab, 1 TAB PO DAILY for 30 Days, #30 TAB 0 Refills Prov:JOHNY ROMERO MD 11/07/24 Amiodarone HCl (Amiodarone HCl) 200 Mg Tab, 200 MG PO Q12HR for 90 Days, #180 TAB 1 Refill Prov:JOHNY ROMERO MD 11/07/24 Aspirin (Aspirin Low Dose) 81 Mg Tab, 81 MG PO DAILY for 90 Days, #90 TAB 1 Refill Prov:JOHNY ROMERO MD 11/07/24 Atorvastatin Calcium (ATORVASTATIN CALCIUM) 40 Mg Tab, 1 TAB PO DAILY, #90 TAB 1 Refill Prov:JOHNY ROMERO MD 11/07/24 Clopidogrel Bisulfate (CLOPIDOGREL) 75 Mg Tab, 75 MG PO DAILY for 90 Days, #90 TAB 1 Refill Prov:JOHNY ROMERO MD 11/07/24 Empagliflozin (Jardiance) 10 Mg Tab, 10 MG PO DAILY for 90 Days, #90 TAB 1 Refill Prov:JOHNY ROMERO MD 11/07/24 Carvedilol (COREG) 3.125 Mg Tab, 3.125 MG PO Q12HR for 30 Days, #60 TAB Prov:JOHNY ROMERO MD 11/07/24 Cyclobenzaprine Hcl (Cyclobenzaprine Hcl) 5 Mg Tab, 1 TAB PO QHSP, #14 TAB 0 Refills Prov:CIRILO LACEY 01/18/24 Information Source: Patient Mode of Arrival: Ambulatory Timing: Days Duration: Since onset Prehospital treatment: None Quality: Pain, Discharge, Hearing loss Past Medical History PAST MEDICAL HISTORY: [place] Surgical History: PTCA Family History Family History: Unknown Social History Smoker: Non-Smoker Alcohol: Rarely Drugs: Denies Drug Use Lives In: Home Constitutional: denies: chills, diaphoresis, fatigue, fever, malaise, sweats, weakness, others EENTM: reports: ear pain, hearing loss; denies: blurred vision, double vision, ear bleeding, ear discharge, ear drainage, ear ringing, eye pain, eye redness, mouth pain, mouth swelling, nasal discharge, nose bleeding, nose congestion, nose pain, photophobia, tearing, throat pain, throat swelling, voice changes, others Respiratory: denies: cough, hemoptysis, orthopnea, SOB at rest, shortness of breath, SOB with excertion, stridor, wheezing, others Cardiovascular: denies: chest pain, dizzy spells, diaphoresis, Dyspnea on exertion, edema, irregular heart beat, left arm pain, lightheadedness, palpit ations, PND, syncope, others Gastrointestinal: denies: abdomen distended, abdominal pain, blood streaked b owels, constipated, diarrhea, dysphagia, difficulty swallowing, hematemesis, melena, nausea, poor appetite, poor fluid intake, rectal bleeding, rectal pain, vomiting, others Genitourinary: denies: burning, dysuria, flank pain, frequency, hematuria, incontinence, penile discharge, penile sore, pain, testicle pain, testicle swelling, urgency, others Neurological: denies: dizziness, fainting, headache, left sided numbness, left sided weakness, numbness, paresthesia, pre-existing deficit, right sided numbness, right sided weakness, seizure, speech problems, tingling, tremors, weakness, others Musculoskeletal: denies: back pain, gout, joint pain, joint swelling, muscle pain, muscle stiffness, neck pain, others Integumetry: denies: bruises, change in color, change in hair/nails, dryness, laceration, lesions, lumps, rash, wounds, others Allergic/Immunocompromised: denies: Difficulty Healing, Frequent Infections, Hives, Itching, others Hematologic/Lymphatic: denies: anemia, blood clots, easy bleeding, easy bruisi ng, swollen glands, others Endocrine: denies: excessive hunger, excessive sweating, excessive thirst, exce ssive urination, flushing, intolerance to cold, intolerance to heat, unexplained weight gain, unexplained weight loss, others Psychiatric: denies: anxiety, bipolar disorder, depression, hopeless, panic disorder, schizophrenia, sleepless, suicidal, others All Other Systems: Reviewed and Negative Physical Exam General Appearance: No Apparent Distress, Normal HEENT: Normal ENT Inspection, Pharynx Normal, TMs Normal Neck: Full Range of Motion, Non-Tender, Normal, Normal Inspection Respiratory: Chest Non-Tender, Lungs Clear, No Accessory Muscle Use, No Respiratory Distress, Normal Breath Sounds Cardiovascular: No Murmur, No Gallop, Regular Rate/Rhythm Breast Exam: Deferred Gastrointestinal: No Organomegaly, Non Tender, No Pulsatile Mass, Normal Bowel Sounds, Soft Genitalia: Deferred Pelvic: Deferred Rectal: Deferred Extremities: No calf tenderness, Normal capillary refill, Normal inspection, Normal range of motion, Non-tender, No pedal edema Musculoskeletal : Apperance: Normal Neurologic: Alert, cylinder press operator apprentice II-XII nml as Tested, No Motor Deficits, Normal Affect, Normal Mood, No Sensory Deficits Cerebellar Function: Normal Reflexes: Normal Skin: Dry, Normal Color, Warm Lymphatic: No Adenopathy Was a procedure done? Was a procedure done?: No EENT DIFF Eye: Other Ear: Abrasion, Cerumen Impaction, Foreign Body, Otitis Externa, Barotrauma, Otitis Media X-Ray, Labs, Meds, VS Vital Signs Date Time Temp Pulse Resp B/P (MAP) Pulse Ox O2 Delivery O2 Flow Rate FiO2 02/12/25 16:38 97.7 92 16 157/98 (117) 96 97.7 02/12/25 16:38 92 17 96 Room Air 02/12/25 14:00 98.2 94 17 155/99 (117) 100 98.2 X-Ray, Labs, Meds, VS Comment 65-year-old male presents to the ER with a chief complaint of left ear problems. Differentials considered but not limited to mastoiditis, malignant otitis externa, herpes zoster, Ramsy Omalley Syndrome perichondritis, frostbite, sunburn, tumor. No diabetes, immunosuppression. Rx: CiproDex [4 drops instilled into the affected ear twice daily for seven days] for inflammatory relief and infection control. Disposition: Discharge home. Strict return precautions discussed. Advise follow up with primary care provider within 24-48 hours. Time of 1ST Reevaluation: 15:26 Reevaluation 1ST: Unchanged Patient Education/Counseling: Diagnosis, Treatment, Prognosis Family Education/Counseling: No Family Present SEPSIS Sepsis Screen Date sepsis recognized/suspect: Feb 12, 2025 Time Sepsis recognized/suspect: 1400 Recent Procedure: No On Antibiotic Therapy: No Respiratory Rate >20: No Heart Rate >90: Yes Temp<36 C (96.8 F) or >38.3 C: No SBP <90 or MAP <65 mmHG: No New Acute Mental Status Change: No Is the patient on CPAP, BIPAP,: No Vital Signs Date Time Temp Pulse Resp B/P (MAP) Pulse Ox O2 Delivery O2 Flow Rate FiO2 02/12/25 16:38 97.7 92 16 157/98 (117) 96 97.7 02/12/25 16:38 92 17 96 Room Air 02/12/25 14:00 98.2 94 17 155/99 (117) 100 98.2 Departure 1 Departure Time of Disposition: 16:07 Impression: Primary Impression: Tympanic membrane rupture Qualified Codes: H72.92 - Unspecified perforation of tympanic membrane, left ear Disposition: 01 HOME / SELF CARE / HOMELESS Condition: Fair e-Prescriptions Ciprofloxacin-Dexamethasone (Ciprofloxacin/Dexamethaso 0.3-0.1 %) 1 Marleny Marleny 4 DROP OT BID for 7 Days, #5 ML 0 Refills Prov: LUCIA SOTO MOTION STUDY ENGINEER 02/12/25 Critical Care Note Critical Care Time?: No I personally scribed for LUCIA SOTO MOTION STUDY ENGINEER ([email or web address]) on 02/12/25 at 16:01. Electronically submitted by Mando Millard ([email or web address]). LUCIA SOTO NP Feb 12, 2025 16:01
[2025-02-12] MEDS ORDERED: CIPR1SUS8 OT (16:08)
[2025-02-12 16:38] VITALS: BP 157/98; PULSE 92; RESP 17; TEMP 97.7; O2SAT 96
== END 2025-02-12 16:43 | disposition home or self-care (01) ==
LOC: ER 13:50
DX: H72.92 Unspecified perforation of tympanic membrane, left ear (principal); F10.90 Alcohol use, unspecified, uncomplicated; I21.9 Acute myocardial infarction, unspecified; Z79.899 Other long term (current) drug therapy; Z79.84 Long term (current) use of oral hypoglycemic drugs; Z79.82 Long term (current) use of aspirin; Z79.02 Long term (current) use of antithrombotics/antiplatelets; Y90.9 Presence of alcohol in blood, level not specified